=== PATIENT | female | born 1930 | race Caucasian/White ===

== ENCOUNTER → 2017-12-13 | Outpatient (CLI) | payer OTHER, MEDICAID ==
[~2017-12-13] MED LIST: ADVAIR HFA 230M12 GM INH; BENADRYL25 MG PO; CIPRO500 MG PO; CLONIDINE HCL0.2 M2 PO; HYDROCODON-ACE1 EAC7 PO; HYDROCODONE-AP1 EAC6 PO; KLOR-CON 1010 MEQ PO; LIALDA1.2 GM PO; LIDODERM1 EACH TRANSDERM; LOVASTATIN 20 M20 MG PO; LYRICA 50 MG50 MG PO; MUCINEX600 MG PO; NEURONTIN600 MG PO; NORCO 10-325 T1 EACH PO; NORVASC5 MG PO; OMEPRAZOLE40 MG PO; PREDNISONE 10 M10 MG PO; PRINIVIL20 MG PO; RISEDRONATE SO150 MG PO; SYNTHROID100 MC1 PO; TYLENOL325 MG PO; VENTOLIN HFA 1818 GM INH
--- NOTE | 2017-12-21 09:09 | PAINCON ---
[address] [address] PAIN MANAGEMENT CONSULTATION Name: MARVIN DARDEN Room: [facility].#: [id number] Admission: 12/13/17 Attend Phys: Brooks Mariscal MD Discharge: Date of : 32 Report #: [id number] THIS REPORT FOR: //name// CC: Florinda Harrell DATE OF SERVICE: 12/13/2017 CHIEF COMPLAINT: Postherpetic neuralgia, had shingles. FOLLOWUP HISTORY: The patient is an 87-year-old female, who has been referred to the pain clinic for evaluation of right-sided chest wall pain. The patient states that she had shingles about 2 years ago. She has been treated with gabapentin and hydrocodone. Finds that these medications are somewhat helpful. When she takes the gabapentin, she notes that there is some improvement, but by the end of the day, she noticed that her pain starts to become more problematic. Has some burning, shooting pain in the posterior portion of her back and some pain that radiates around to the right breast into the midline area. She has not noticed any vesicles or new lesions. At this juncture, she would like to be evaluated and take note of any additional pain medications/procedures which would be helpful at this juncture. She did not have a thoracic epidural for sympathectomy originally. ALLERGIES: BACTRIM-DS AND AUGMENTIN. PAST MEDICAL HISTORY: Hypertension, asthma, hypercholesterolemia, GERD, dysequilibrium, chronic ulcerative colitis, peripheral postherpetic neuropathy, insomnia, generalized anxiety disorder, osteoporosis, essential hypertension, osteopenia, hypothyroidism, eczema, history of carcinoma basal cell, allergic rhinitis, hyperlipidemia, degenerative joint disease, and rosacea. CURRENT MEDICATIONS: 1. Albuterol 2.5 mg nebulizer q.i.d. 2. Nortriptyline 10 mg 1 p.o. t.i.d. 3. Amlodipine 5 mg. 4. Risedronate 150 mg monthly. 5. Gabapentin 600 mg p.o. t.i.d. 6. Colace 100 mg daily. 7. Hydrocodone 10/325 one p.o. up to 4 times daily. 8. Trazodone 150 mg at bedtime. 9. Aspirin 81 mg. 10. Lisinopril 40 mg. 11. Caltrate 600 mg. 12. Lialda 1.2 g time release. 13. Levothyroxine [address] [place] [address] PAIN MANAGEMENT CONSULTATION Name: MARVIN DARDEN Room: [facility]#: [id number] Admission: 12/13/17 Attend Phys: Brooks Mariscal MD Discharge: Date of : 32 Report #: [id number] 14. Lovastatin 40 mg at bedtime. 15. ProAir 2 puffs daily. 16. Advair Diskus 1 puff b.i.d. 17. Omeprazole one 40 mg capsule daily. PAST SURGICAL HISTORY: Bilateral knee surgery was in 2007 and cataract surgery. SOCIAL HISTORY: She is retired. Denies use of tobacco, denies use of alcoholic beverages. REVIEW OF SYSTEMS: Generally, good health. Some fatigue and weakness, headaches, wears glasses, eye disease, hearing loss, palpitations, shortness of breath with walking, cough, frequent shortness of breath, asthma, wheezing, frequent urination, awakens at night to urinate, thyroid disease, frequent headaches, memory loss, and bruising. PAIN CLINIC ASSESSMENT: 1. The patient does have osteoarthritic changes with bilateral knee replacements. 2. Height 4 feet 9 inches, weight 137 pounds, BMI is 29. 3. Vital Signs: Blood pressure 144/70, heart rate 70, respiratory rate 16, room air saturation 96%, temperature 98.2. 4. Pain intensity 3/10, worse when the intensity of the pain/lancinating pain is present. 5. Fall history: The patient fell about 2 years ago and fractured her right wrist and thumb. 6. Blood thinner. The patient is not on a blood thinner. 7. History of hypertension. The patient is being treated for hypertension. 8. Opioid therapy greater than 6 weeks. The patient has been on opioid therapy greater than 6 weeks. 9. Risk assessment tool. 10. Functional assessment tool 47/70 indicating moderate impact on activities of daily living secondary to the pain. 11. Recreational drugs: The patient denies use of recreational drugs. 12. Tobacco: The patient denies use of tobacco. 13. Alcohol: The patient denies use of alcohol. PHYSICAL EXAMINATION: GENERAL: The patient is a well-developed female. She appears her stated age. She is alert and oriented x 3. HEENT: Normocephalic, atraumatic. Extraocular eye muscles intact. She wears glasses. Hearing is adequate. Mucous membranes are moist. NECK: Without adenopathy. Good range of motion. Upper extremities judged to be 4/5 for muscle strength bilaterally. MUSCULOSKELETAL: Without significant scoliosis or lordosis. Slight kyphosis. ABDOMEN: Protuberant lower extremity muscle strength is judged to be 4+ to -5 [place] [address] PAIN MANAGEMENT CONSULTATION Name: MARVIN DARDEN Room: [facility] Teresa#: [id number] Admission: 12/13/17 Attend Phys: Brooks Mariscal MD Discharge: Date of : 32 Report #: [id number] for the major muscle groups of lower extremity. The patient uses her arms to help push herself from the feet to stand up. Walks with use of a cane in her right hand. Does need some assistance in going from the floor to the examination table. CHEST: The patient has some remnants of lesions from the thoracic shingles outbreak in the T6/T7 is distribution. The patient has some pain and discomfort over her left breast. Has some pain in the posterior portion in the midline area of her back. No lesions are noted. Palpation in this area of the anterior breast is sore and tender. The patient does not wear a bra. IMPRESSION: 1. History of shingles approximately 2 years ago with postherpetic neuralgia involving the right T6/T7 dermatomal distribution. 2. Asthma. 3. Gastroesophageal reflux disease. 4. Dysequilibrium. 5. Chronic ulcerative colitis. 6. Postherpetic neuralgia. 7. Insomnia. 8. Generalized anxiety disorder. 9. Osteoporosis. 10. Hypertension. 11. Osteopenia. 12. Hypothyroidism. 13. Eczema. 14. History of carcinoma, basal cell. 15. Hyperlipidemia. 16. Degenerative joint disease. 17. Rosacea. RECOMMENDATIONS: We discussed treatment options with the patient. At this juncture, we will make some modifications to her medications. She feels that the gabapentin has been helpful. It "wears off." We will try Lyrica 50 mg 1 p.o. b.i.d. and note its efficacy. The patient has been given a script for this medication. She feels that the hydrocodone 3-4 tablets p.o. 10 mg daily is efficacious. We will give her a script for 3 tablets 1 p.o. daily. She will follow up in about 2 weeks and note its efficacy. We would like to thank you for letting us participate in her care. The patient will also try Lidoderm patches to apply to the affected area q.12 hours. She will call us if she has any problems [place] [address] PAIN MANAGEMENT CONSULTATION Name: MARVIN DARDEN Room: [facility]#: [id number] Admission: 12/13/17 Attend Phys: Brooks Mariscal MD Discharge: Date of : 32 Report #: [id number] We would like to thank you for letting us participate in her care. We hope she continues to improve. <ELECTRONICALLY SIGNED> By: Brooks Mariscal MD 12/21/17 0909 1307 1931N. Tucker Mariscal MD /ABDIRIZAK
== END ==
LOC: M.PC 12-04 10:40
DX: B02.29 Other postherpetic nervous system involvement (principal); B02.9 Zoster without complications; J45.909 Unspecified asthma, uncomplicated; K21.9 Gastro-esophageal reflux disease without esophagitis; R42 Dizziness and giddiness; K51.90 Ulcerative colitis, unspecified, without complications; F41.9 Anxiety disorder, unspecified; M81.0 Age-related osteoporosis without current pathological fracture; I10 Essential (primary) hypertension; E03.9 Hypothyroidism, unspecified; L30.9 Dermatitis, unspecified; E78.5 Hyperlipidemia, unspecified; M19.90 Unspecified osteoarthritis, unspecified site; L71.9 Rosacea, unspecified; M85.80 Other specified disorders of bone density and structure, unspecified site; G47.00 Insomnia, unspecified; Z85.828 Personal history of other malignant neoplasm of skin; Z88.2 Allergy status to sulfonamides; Z88.1 Allergy status to other antibiotic agents

== ENCOUNTER → 2017-12-27 | Outpatient (CLI) | payer OTHER, MEDICAID ==
--- NOTE | 2018-01-23 13:42 | PAINCON ---
[address] [address] PAIN MANAGEMENT CONSULTATION Name: MARVIN DARDEN Room: [facility].#: [id number] Admission: 12/27/17 Attend Phys: Brooks Mariscal MD Discharge: Date of : 32 Report #: [id number] THIS REPORT FOR: //name// CC: Florinda Harrell DATE OF SERVICE: 12/27/2017 CHIEF COMPLAINT: Still having pain from the shingles. FOLLOWUP HISTORY: The patient is an 87-year-old female who has been referred to the Pain Clinic because of postherpetic neuralgia. The patient states that she has had this for about 2 years. She has been treated with gabapentin and hydrocodone. Her medications were modified at the last visit. She is now taking Lyrica. She took 150 mg daily since we saw her last. She feels that her pain continues to be problematic. She still has burning pain. She still has shooting pain in the upper portion of her back and some pain radiating into the midline in the breast area. She still feels that her pain is still problematic and rates it as a 6/10. She had no problems with the Lyrica medication. She feels that Lidoderm patches are working reasonably well. She would like to continue with her medications. CURRENT MEDICATIONS: 1. Albuterol 2.5 mg q.i.d. 2. Nortriptyline 10 mg t.i.d. 3. Amlodipine 5 mg. 4. Risedronate 150 mg monthly. 5. Gabapentin 600 mg t.i.d. - has been changed to Lyrica 150 mg b.i.d. 6. Colace. 7. Hydrocodone 10/325 q.i.d. 8. Trazodone 150 mg at bedtime. 9. Aspirin 81 mg. 10. Lisinopril 40 mg. 11. Caltrate 600 mg. 12. Lialda 1.2 g time release. 13. Levothyroxine 100 mcg. 14. Lovastatin 40 mg at bedtime. 15. ProAir 2 puffs daily. 16. Advair Diskus 1 puff b.i.d. 17. Omeprazole one 40 mg tablet daily. PAIN CLINIC ASSESSMENT: 1. The patient does have osteoarthritic changes involving her knees bilaterally with status post replacements. 2. Height 4 feet 9 inches, weight 137 pounds, BMI is 29.7. [place] [id number] PAIN MANAGEMENT CONSULTATION Name: MARVIN DARDEN Room: [facility]#: [id number] Admission: 12/27/17 Attend Phys: Brooks Mariscal MD Discharge: Date of : 32 Report #: [id number] 3. Vital Signs: Blood pressure 128/67, heart rate is 81, respiratory rate is 16, room air saturation 95%, temperature 98.5. 4. Pain clinic intensity 6/10 with lancinating pain to the chest wall. 5. Fall history: The patient has not fallen in the last three months. 6. Blood thinner. The patient is not on a blood thinner. 7. History of hypertension. The patient is being treated for hypertension. 8. Opioid therapy greater than 6 weeks. The patient has been on opioid therapy greater than 6 weeks. 9. Risk assessment tool. 10. Functional assessment tool 47/70 indicating moderate impact on activities of daily living. 11. Recreational drug use: The patient denies use of recreational drugs. 12. Tobacco: The patient denies use of tobacco. 13. Alcohol: The patient denies use of alcoholic beverages. PHYSICAL EXAMINATION: GENERAL: The patient is a well-developed female. She appears her stated age. She is alert and oriented x 3. HEENT: Normocephalic, atraumatic. Extraocular eye muscles intact. She is wearing glasses. Hearing is adequate. Mucous membranes are moist. Sclerae nonicteric. NECK: Without adenopathy. Good range of motion. Upper extremities judged to be 4/5 for muscle strength bilaterally and symmetrical. MUSCULOSKELETAL: Without significant scoliosis or lordosis. The patient is slightly kyphotic. ABDOMEN: Protuberant lower extremity muscle strength judged to be 5/5 for the major muscle groups. The patient uses her arms to push and lift herself from a seated position in the chair to a standing position. Walks with her cane in her right hand. Does need some assistance when going from the floor to the examination table. CHEST: Clear to auscultation. Some remnants of thoracic shingle outbreak at the T6/T7 distribution is noted. She has some discomfort over her left breast area. She has some pain in the posterior portion of her back secondary to the shingles. No lesions are noted. Soreness and tenderness in the anterior portion of the breast to palpation. The patient does not wear a bra. IMPRESSION: 1. History of shingles 2 years status post now postherpetic neuralgia involving the T6/T7 dermatomal distribution. 2. Asthma. 3. Gastroesophageal reflux. 4. Dysequilibrium. 5. Chronic ulcerative colitis. 6. Peripheral postherpetic neuralgia. 7. Insomnia. 8. Generalized anxiety disorder. [address] [place] [address] PAIN MANAGEMENT CONSULTATION Name: MARVIN DARDEN Room: [facility]#: [id number] Admission: 12/27/17 Attend Phys: Brooks Mariscal MD Discharge: Date of : 32 Report #: [id number] 9. Osteoporosis. 10. Hypertension. 11. Osteopenia. 12. Hypothyroidism. 13. Eczema. 14. History of carcinoma - basal cell. 15. Hyperlipidemia. 16. 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 17. Rosacea. RECOMMENDATIONS: We discussed treatment options with the patient. At this juncture, we will increase her Lyrica from 150 mg daily to 200 mg daily. We will also continue with hydrocodone 5, one p.o. t.i.d., total of 90. We may continue switching the patient from nortriptyline to Elavil. As you recall, nortriptyline is a metabolite of Elavil. Sometimes patients find that Elavil can be more beneficial in decreasing pain and discomfort. She will follow up as needed. We would like to thank you for letting us participate in her care. We hope she continues to improve. <ELECTRONICALLY SIGNED> By: Brooks Mariscal MD 01/23/18 1342 0916 0052N. Tucker Mariscal MD /nt
== END ==
LOC: M.PC 04:04
DX: B02.29 Other postherpetic nervous system involvement (principal); K21.9 Gastro-esophageal reflux disease without esophagitis; K51.90 Ulcerative colitis, unspecified, without complications; G47.00 Insomnia, unspecified; J45.909 Unspecified asthma, uncomplicated; F41.1 Generalized anxiety disorder; R42 Dizziness and giddiness

== ENCOUNTER 2018-01-14 15:32 | Observation (INO) | payer OTHER, MEDICAID ==
[~2018-01-14] VITALS: Ht 142.2 cm; Wt 63.5 kg
[~2018-01-14 15:32] MED LIST changes: -BENADRYL25 MG PO; -CLONIDINE HCL0.2 M2 PO; -HYDROCODONE-AP1 EAC6 PO; -KLOR-CON 1010 MEQ PO; -TYLENOL325 MG PO
[2018-01-14 15:39] VITALS: BP 158/89
[2018-01-14] MEDS ORDERED: TYLENOL325 MG PO (15:46)
[2018-01-14] MEDS ORDERED: CLONIDINE HCL0.2 M2 PO (15:47)
[2018-01-14] MEDS ORDERED: KLOR-CON 1010 MEQ PO (15:47)
[2018-01-14] MEDS ORDERED: BENADRYL25 MG PO (15:47)
[2018-01-14 16:11] LABS: URINE BILIRUBIN NEGATIVE (Negative); URINE BLOOD 1+ (Negative); URINE CLARITY CLEAR; URINE COLOR YELLOW; URINE GLUCOSE-RANDOM NEGATIVE (Negative); URINE KETONES NEGATIVE (Negative); URINE LEUKOCYTES-REFLEX NEGATIVE (Negative); URINE NITRITE-REFLEX NEGATIVE (Negative); URINE PROTEIN NEGATIVE (Negative); URINE UROBILINOGEN 0.2 E.U./dl (0.2-1.0)
[2018-01-14 16:22] LABS: BACTERIA-REFLEX None Seen /HPF (None Seen); CASTS None Seen /LPF (None Seen); CRYSTALS None Seen /LPF (None Seen); SQUAMOUS 0-3 Few /LPF (0-3); URINE RBC 0-2 Rare /HPF (0-2); URINE WBC-REFLEX None Seen /HPF (0-5)
[2018-01-14 16:39] LABS: ABSOLUTE BASOPHILS 0.1 thou/uL (0.0-0.2); ABSOLUTE EOSINOPHILS 0.1 thou/uL (0.0-0.7); ABSOLUTE LYMPHOCYTES 2.8 thou/uL (0.8-5.3); ABSOLUTE MONOCYTES 0.5 thou/uL (0.0-1.2); ABSOLUTE NEUTROPHILS 3.3 thou/uL (1.6-8.1); BASOPHILS 0.9 %; EOSINOPHILS 1.2 %; HEMATOCRIT 36.6 % (37.0-47.0); HEMOGLOBIN 12.3 gm/dL (12.0-15.0); LYMPHOCYTES 41.3 %; MCH 31.5 pg (26.0-34.0); MCHC 33.7 g/dL (28.0-37.0); MCV 93.5 fL (80.0-100.0); MONOCYTES 7.3 %; MPV 7.9 fl. (7.2-11.1); NUCLEATED RBCS 0 /100WBC; PLATELET COUNT* 236 thou/uL (150-400); POLYS 49.3 %; RBC 3.92 mil/uL (4.20-5.00); RDW-CV 14.5 % (10.5-14.5); WBC 6.7 thou/uL (4.0-11.0)
[2018-01-14 16:49] LABS: ANION GAP 8 mmol/L (7-16); BUN 15 mg/dL (7-18); CALCIUM 8.6 mg/dL (8.5-10.1); CHLORIDE 100 mmol/L (98-107); CO2 27 mmol/L (21-32); CREATININE 0.6 mg/dL (0.6-1.3); GLUCOSE 110 mg/dL (70-99); POTASSIUM 3.7 mmol/L (3.5-5.1); SODIUM 135 mmol/L (136-145)
[2018-01-14 16:59] LABS: ALBUMIN 3.5 g/dL (3.4-5.0); ALKALINE PHOSPHATASE 60 U/L (46-116); LIPASE 196 U/L (73-393); NT-PRO BRAIN NAT PEPTIDE 139 pg/mL (<300); SGOT 15 U/L (15-37); SGPT 19 U/L (30-65); TOTAL BILIRUBIN 0.3 mg/dL (<0.1-1.0); TOTAL PROTEIN 7.6 g/dL (6.4-8.2); TROPONIN-I LEVEL <0.06 ng/mL (<0.06)
--- NOTE | 2018-01-14 18:37 | NUR ---
DINNER TRAY CAME AND PT WAS HAVING US CAROTIDS. TAKING TRAY TO UNIT WITH PATIENT
[2018-01-14 19:00] VITALS: BP 140/59
[2018-01-14 20:00] VITALS: BP 133/48
[2018-01-14 23:43] VITALS: BP 148/63
[2018-01-15] VITALS (7 sets, daily range): BP systolic 96–147; BP diastolic 43–70
[2018-01-15 01:06] LABS: CALCIUM 8.7 mg/dL (8.5-10.1); CREATININE 0.6 mg/dL (0.6-1.3); MAGNESIUM 2.2 mg/dL (1.8-2.4); POTASSIUM 4.1 mmol/L (3.5-5.1)
--- NOTE | 2018-01-15 12:27 | NUR ---
MET WITH PT, SHE LIVES ALONE IN [facility]. NO SERVICES THERE. PT STATES SHE IS INDEPENDENT AND ACTIVE, USES CANE OR WALKER. [facility]TR PROVIDES TRANSPORTATION TO APPTS AND STORE. PT IS ABLE TO CLEAN/COOK. SHE HAS HAD HH IN PAST. DENIES ANY DC NEEDS. WILL FOLLOW
--- NOTE | 2018-01-15 13:34 | 2DMMODE ---
[place] [address] 2 D/M-MODE ECHOCARDIOGRAM Name: MARVIN DARDEN Room: [address] Afshan Moore#: [id number] Admission: 01/14/18 Attend Phys: Raghavendra Almonte, Discharge: Date of : 32 Date of Service: 01/15/18 1334 Report #: [id number] THIS REPORT FOR: //name// APPROVED REPORT Study performed: 01/15/2018 10:49:45 EXAM: Comprehensive 2D, Doppler, and color-flow Echocardiogram Patient Location: In-Patient Room #: [facility] Status: routine BSA: 1.58 HR: 63 bpm BP: 138/70 mmHg Rhythm: NSR Other Information Study Quality: Good Indications Hypertension/HDD 2D Dimensions LVEF(%): 71.02 (>50%) IVSd: 8.88 (7-11mm) LVOT Diam: 18.01 (18-24mm) LVDd: 40.62 mm PWd: 8.60 (7-11mm) Ascending Ao: 28.50 (22-36mm) LVDs: 24.41 (25-40mm) Aortic Root: 26.26 mm Pettit's LVEF: 71.02 % Volumes Left Atrial Volume (Systole) LA ESV Index: 28.10 mL/m2 Aortic Valve AoV Peak El.: 1.89 m/s AO Peak Gr.: 14.26 mmHg LVOT Max P.64 mmHg AO Mean Gr.: 8.11 mmHg LVOT Mean P.25 mmHg LVOT Max V: 1.08 m/s AO V2 VTI: 39.06 cm LVOT Mean V: 0.69 m/s OMEGA (VTI): 1.59 cm2 LVOT V1 VTI: 24.37 cm Mitral Valve E/A Ratio: 0.77 [place] [address] 2 D/M-MODE ECHOCARDIOGRAM Name: MARVIN DARDEN Room: [address] Teresa#: [id number] Admission: 01/14/18 Attend Phys: Raghavendra Almonte, Discharge: Date of : 32 Date of Service: 01/15/18 1334 Report #: [id number] MV Decel. Time: 327.35 ms MV E Max El.: 0.79 m/s MV PHT: 94.93 ms MVA (PHT): 2.32 cm2 TDI E/Lateral E': 11.29 E/Medial E': 9.88 Medial E' El.: 0.08 m/s Lateral E' El.: 0.07 m/s Pulmonary Valve PV Peak El.: 0.98 m/s PV Peak Gr.: 3.87 mmHg Tricuspid Valve TR Peak Gr.: 19.29 mmHg RVSP: 24.00 mmHg Left Ventricle The left ventricle is normal size. There is normal LV segmental wall motion. There is normal left ventricular wall thickness. Left ventricular systolic function is normal. The left ventricular ejection fraction is within the normal range. LVEF is 60-65%. Grade I - abnormal relaxation pattern. Right Ventricle The right ventricle is normal size. The right ventricular systolic function is normal. Atria The left atrium size is normal. The right atrium size is normal. Aortic Valve The aortic valve is normal in structure. No aortic regurgitation is present. There is no aortic valvular stenosis. Mitral Valve The mitral valve is normal in structure. There is no mitral valve regurgitation noted. No evidence of mitral valve stenosis. Tricuspid Valve The tricuspid valve is normal in structure. Mild tricuspid regurgitation. The RVSP is ____24___ mmHg. Pulmonic Valve The pulmonary valve is normal in structure. There is no pulmonic [place] [address] 2 D/M-MODE ECHOCARDIOGRAM Name: MARVIN DARDEN Room: [address] M.RVignesh#: [id number] Admission: 01/14/18 Attend Phys: Raghavendra Almonte, Discharge: Date of : 32 Date of Service: 01/15/18 1334 Report #: [id number] Great Vessels The aortic root is normal in size. IVC is normal in size and collapses with >50% inspiration Pericardium There is no pericardial effusion. <Conclusion> The left ventricle is normal size. There is normal left ventricular wall thickness. Left ventricular systolic function is normal. The left ventricular ejection fraction is within the normal range. LVEF is 60-65%. Grade I - abnormal relaxation pattern. The right ventricle is normal size. The left atrium size is normal. The aortic valve is normal in structure. The mitral valve is normal in structure. The tricuspid valve is normal in structure. Mild tricuspid regurgitation. The RVSP is ____24___ mmHg. IVC is normal in size and collapses with >50% inspiration There is no pericardial effusion. There is normal LV segmental wall motion. <ELECTRONICALLY SIGNED> By: Clarence Figueroa MD, [facility] 01/15/18 1334 1334 1334 Clarence Figueroa MD, FACC /INF
--- NOTE | 2018-01-15 13:56 | EKG ---
[place] [address] ELECTROCARDIOGRAM REPORT Name: AMRVIN DARDEN Room: [address]R.#: [id number] Admission: 01/14/18 Attend Phys: Raghavendra Almonte MD Discharge: Date of : 32 Report #: [id number] THIS REPORT FOR: //name// [facility] ED Test Date: 2018-01-14 Test Time: 15:45:50 Pat Name: MARVIN DARDEN Department: Room: Gender: F Job Placement Specialist: [place] : 1930 Requested By: Rufus Sexton Order Number: [id number] MD: Clarence Figueroa Measurements Intervals [place] Rate: 65 P: 30 NV: 181 QRS: -42 QRSD: 106 T: 24 QT: 440 QTc: 458 Interpretive Statements Sinus rhythm Probable left atrial enlargement Left anterior fascicular block Left ventricular hypertrophy No previous ECG available for comparison Electronically Signed On 01-15-2018 13:56:15 CDT by Clarence Figueroa [email or web address] <ELECTRONICALLY SIGNED> By: Clarence Figueroa MD, [facility] 01/15/18 1356 1545 1545 Clarence Figueroa MD, FACC /EPI
--- NOTE | 2018-01-15 14:52 | NUR ---
ASSUMED CARE OF PATIENT AFTER REPORT THIS MORNING. PATIENT AWAKE, ALERT, AND ORIENTED APPROPRIATELY. PHYSICAL ASSESSMENT COMPLETED AND CHARTED. COMPLAINED OF PAIN. GIVEN SCHEDULED MEDICATIONS, SEE EMAR FOR DOCUMENTATION. VITAL SIGNS STABLE. OXYGEN SATURATION WITHIN NORMAL LIMITS ON ROOM AIR. PATIENT TRANSFERS AND AMBULATES WITH ASSISTANCE FROM STAFF. USES CALL LIGHT APPROPRIATELY. HAS AMBULATED HALLWAYS TODAY WITH PLATING FOREMAN ASSIST. RECEIVED ORDERS TO DISCHARGE PATIENT. ECHO RESULTS NORMAL. IV DISCONTINUED AND WORKERS COMPENSATION LEGAL SECRETARY RETURNED TO NURSE'S STATION. NURSING WILL CONTINUE TO MONITOR UNTIL DISCHARGE.
--- NOTE | 2018-01-15 15:16 | NUR ---
DISCHARGE PAPERWORK COMPLETED AND DISCUSSED WITH PATIENT. GIVEN COPY TO TAKE HOME. PATIENT DISCHARGED AT THIS TIME.
[2018-01-24] MEDS ORDERED: HYDROCODON-ACE1 EAC7 PO ×3 (08:39→10:27)
[2018-01-24] MEDS ORDERED: HYDROCODONE-AP1 EAC6 PO (10:27)
[2018-01-24] MEDS ORDERED: LYRICA 50 MG50 MG PO (10:27)
== END 2018-01-15 15:16 | disposition home or self-care (01) ==
LOC: M.ERS 15:32 → M.2W 17:29 → M.TBA-ER 17:29 → M.2W 17:29
PROVIDERS: Emergency Medicine; ADMIT Internal Medicine
DX: R55 Syncope and collapse (principal); K21.9 Gastro-esophageal reflux disease without esophagitis; I10 Essential (primary) hypertension; J45.909 Unspecified asthma, uncomplicated; K51.90 Ulcerative colitis, unspecified, without complications; J98.4 Other disorders of lung; E87.6 Hypokalemia; E03.9 Hypothyroidism, unspecified; Z79.899 Other long term (current) drug therapy; T42.6X5A Adverse effect of other antiepileptic and sedative-hypnotic drugs, initial encounter; Y92.89 Other specified places as the place of occurrence of the external cause

== ENCOUNTER → 2018-01-24 | Outpatient (CLI) | payer OTHER, MEDICAID ==
[~2018-01-24] MED LIST changes: +BENADRYL25 MG PO; +CLONIDINE HCL0.2 M2 PO; +HYDROCODONE-AP1 EAC6 PO; +KLOR-CON 1010 MEQ PO; +TYLENOL325 MG PO
--- NOTE | 2018-02-07 15:18 | PAINCON ---
[address] [address] PAIN MANAGEMENT CONSULTATION Name: MARVIN DARDEN [id number] Admission: 01/24/18 Attend Phys: Brooks Mariscal MD Discharge: Date of : 32 Report #: [id number] THIS REPORT FOR: //name// CC: Florinda Mariscal DATE OF SERVICE: 01/24/2018 FOLLOWUP COMPLAINT: "Here to get a renewal of my medication." FOLLOWUP HISTORY: The patient is an 87-year-old female, who has been seen in the pain clinic. As you recall, she suffered from shingles. The postherpetic pain continued to be problematic. She was given a sample pack for Lyrica. She felt that this medication was helpful. [place] that it was more helpful than the gabapentin, which she had been taking. She was provided [place] 5 mg 1 p.o. t.i.d. and found that medication was helpful. She had been taking it 4 times a day. Overall, [place] and Lyrica were helpful with the postherpetic neuralgia. Rates her pain as a 3/10 at this juncture. She has returned today for renewal of her medications. ALLERGIES: No known drug allergies. CURRENT MEDICATIONS: Albuterol 2.5 mg q.i.d., nortriptyline 10 mg t.i.d., amlodipine 5 mg, risedronate 150 mg monthly, gabapentin has been used, the patient is taking 150 mg b.i.d., Colace, hydrocodone 5/325 one p.o. q.i.d., trazodone 150 mg at bedtime, aspirin 81 mg, lisinopril 40 mg, Caltrate 600 mg, Lialda 12.5 grams time release, levothyroxine 100 mcg, lovastatin 40 mg at bedtime, ProAir 2 puffs daily, Advair Diskus 1 puff b.i.d., and omeprazole 40 mg daily. PAIN CLINIC ASSESSMENT: 1. The patient does have osteoarthritic changes involving her knees bilaterally and is status post replacement of the knees. 2. Height 4 feet 9 inches. Weight 139, BMI 30. 3. VITAL SIGNS: Blood pressure 151/73, heart rate 86, respiratory rate 10, room air saturation 97%, temperature 98.7, pain score intensity 3/10. 4. Fall history: The patient has not fallen in the last 3 months. 5. Blood thinner. The patient is not on a blood thinning medication. 6. History of hypertension. The patient is being treated for hypertension. 7. Opioid therapy greater than 6 weeks. The patient has been on opioid therapy greater than 6 weeks using hydrocodone. 8. Risk assessment tool. 9. Functional assessment tool, 47/70 indicating moderate impact on activities of daily living secondary to the pain. 10. Recreational drug use. The patient denies use of recreational drug use. 11. Tobacco: The [place] [address] PAIN MANAGEMENT CONSULTATION Name: MARVIN DARDEN Room: [facility] Teresa#: [id number] Admission: 01/24/18 Attend Phys: Brooks Mariscal MD Discharge: Date of : 32 Report #: [id number] 12. Alcohol: The patient denies use of alcoholic beverages. PHYSICAL EXAMINATION: GENERAL: The patient is a well-developed, small female. She appears her stated age. She is alert and oriented x 3. HEENT: Normocephalic, atraumatic. Extraocular eye muscles intact. The patient is wearing glasses. Her hearing is adequate. Mucous membranes are moist. Sclerae nonicteric. NECK: Without adenopathy. Good range of motion. Upper extremity is judged to be 4/5 for the major muscle groups with symmetry. MUSCULOSKELETAL: Without significant scoliosis or lordosis. The patient is slightly kyphotic. ABDOMEN: Slightly protuberant. EXTREMITIES: Lower extremity muscle strength is judged to be 4+/5 for the major muscle groups. The patient uses her arms to push herself from sitting to a standing position. She walks with a cane. CHEST: Clear. The patient with remnants of shingles outbreak in the T6/T7 distribution. No lesions are noted. The patient has some soreness and tenderness in the anterior portion of the breast in the area of the shingles outbreak. IMPRESSION: 1. History of shingles, 2 years status post postherpetic neuralgia involving T6/T7 dermatomal distribution. 2. Asthma. 3. Gastroesophageal reflux. 4. Dysequilibrium. 5. Chronic ulcerative colitis. 6. Postherpetic neuralgia. 7. Insomnia. 8. Generalized anxiety disorder. 9. Osteoporosis. 10. Hypertension. 11. Osteopenia. 12. Hyperthyroidism. 13. Eczema. 14. History of cancer in situ/basal cell. 15. Hyperlipidemia. 16. 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 17. Rosacea. RECOMMENDATIONS: We discussed treatment options with the patient. She felt that the gabapentin was helpful. At this juncture, we will rewrite for the gabapentin and increase it as she is able to tolerate it. She requests script and one for 50 mg 1 p.o. t.i.d. has been written. Also, the patient would like to have a renewal of hydrocodone. A script [place] [address] PAIN MANAGEMENT CONSULTATION Name: ADELSOMARVIN Chantale [facility] [id number] Admission: 01/24/18 Attend Phys: Brooks Mariscal MD Discharge: Date of : 32 Report #: [id number] q.i.d. has been written. The patient feels that medication is helpful. A 3-month prescription for the hydrocodone has been written. The patient states that she has quite a difficult time in getting to the pain clinic. She will call us if she has any problems with her medications. Hopefully, she finds that the Lyrica continues to be helpful. Overall, she feels that the medications have been helpful in decreasing her postherpetic neuralgia and feels that Lyrica has been more efficacious than gabapentin. <ELECTRONICALLY SIGNED> By: Brooks Mariscal MD 02/07/18 1518 1618 1949N. Tucker Mariscal MD /nt
== END ==
LOC: M.PC 01:11
DX: M81.0 Age-related osteoporosis without current pathological fracture (principal); M85.80 Other specified disorders of bone density and structure, unspecified site; M17.0 Bilateral primary osteoarthritis of knee; E03.9 Hypothyroidism, unspecified; E78.5 Hyperlipidemia, unspecified; K21.9 Gastro-esophageal reflux disease without esophagitis; K51.90 Ulcerative colitis, unspecified, without complications; J45.909 Unspecified asthma, uncomplicated; B02.29 Other postherpetic nervous system involvement; G47.00 Insomnia, unspecified; F41.1 Generalized anxiety disorder; L71.9 Rosacea, unspecified; R42 Dizziness and giddiness; Z79.899 Other long term (current) drug therapy

== ENCOUNTER 2018-07-25 06:06 | Observation (INO) | payer OTHER, MEDICAID ==
[~2018-07-25] VITALS: Ht 147.3 cm; Wt 64.9 kg
[2018-07-25] VITALS (8 sets, daily range): BP systolic 95–169; BP diastolic 42–79
--- NOTE | 2018-07-25 00:08 | NUR ---
ASSESSMENT COMPLETE. SEE CHARTING FOR DETAILS. TRACING SR WITH 1ST DEGREE BLOCK ON MONITOR. ORTHOSTATICS NEGATIVE. PT COMPLAINS OF PAIN IN RIGHT CHEST TO UNDER RIGHT ARM TO BACK THAT IS CHRONIC. PRN HYDROCODONE GIVEN WITH SOME RELIEF. PT DENIES DIZZINESS, N/V/D. CLWR/
--- NOTE | 2018-07-25 06:46 | NUR ---
PATIENT AMBULATED TO BATHROOM WITH ASSISTANCE AND PROVIDED WITH A URINE SPECIMAN.
[2018-07-25 06:52] LABS: URINE BILIRUBIN NEGATIVE (Negative); URINE BLOOD NEGATIVE (Negative); URINE CLARITY CLEAR; URINE COLOR YELLOW; URINE GLUCOSE-RANDOM NEGATIVE (Negative); URINE KETONES NEGATIVE (Negative); URINE LEUKOCYTES-REFLEX TRACE (Negative); URINE NITRITE-REFLEX NEGATIVE (Negative); URINE PROTEIN NEGATIVE (Negative); URINE UROBILINOGEN 0.2 E.U./dl (0.2-1.0)
[2018-07-25 07:01] LABS: ABSOLUTE BASOPHILS 0.1 thou/uL (0.0-0.2); ABSOLUTE EOSINOPHILS 0.2 thou/uL (0.0-0.7); ABSOLUTE MONOCYTES 0.6 thou/uL (0.0-1.2); ABSOLUTE NEUTROPHILS 4.2 thou/uL (1.6-8.1); EOSINOPHILS 3.1 %; HEMOGLOBIN 12.4 gm/dL (12.0-15.0); LYMPHOCYTES 27.7 %; MCH 32.3 pg (26.0-34.0); MCHC 33.5 g/dL (28.0-37.0); MCV 96.4 fL (80.0-100.0); MONOCYTES 8.7 %; MPV 7.6 fl. (7.2-11.1); NUCLEATED RBCS 0 /100WBC; PLATELET COUNT* 245 thou/uL (150-400); POLYS 59.5 %; RBC 3.84 mil/uL (4.20-5.00); RDW-CV 13.8 % (10.5-14.5); WBC 7.1 thou/uL (4.0-11.0)
[2018-07-25 07:08] LABS: BACTERIA-REFLEX 1-9 Few /HPF (None Seen); SQUAMOUS 4-10 Moderate /LPF (0-3); URINE RBC 0-2 Rare /HPF (0-2); URINE WBC-REFLEX 0-5 Rare /HPF (0-5)
[2018-07-25 07:09] LABS: CASTS None Seen /LPF (None Seen); CRYSTALS None Seen /LPF (None Seen); MUCUS 0-3 Light strn/LPF (None Seen)
[2018-07-25 07:11] LABS: ANION GAP 10 mmol/L (7-16); BUN 17 mg/dL (7-18); CALCIUM 9.1 mg/dL (8.5-10.1); CHLORIDE 104 mmol/L (98-107); CO2 26 mmol/L (21-32); CREATININE 0.7 mg/dL (0.6-1.3); GLUCOSE 91 mg/dL (70-99); POTASSIUM 3.5 mmol/L (3.5-5.1); SODIUM 140 mmol/L (136-145)
[2018-07-25 07:14] LABS: APTT 26.6 Seconds (25.0-31.3); PROTIME 10.2 Seconds (9.20-11.50)
[2018-07-25 07:26] LABS: ALBUMIN 3.4 g/dL (3.4-5.0); ALKALINE PHOSPHATASE 67 U/L (46-116); NT-PRO BRAIN NAT PEPTIDE 113 pg/mL (<300); SGOT 15 U/L (15-37); SGPT 21 U/L (30-65); TOTAL BILIRUBIN 0.4 mg/dL (<0.1-1.0); TOTAL PROTEIN 7.7 g/dL (6.4-8.2); TROPONIN-I LEVEL <0.06 ng/mL (<0.06)
--- NOTE | 2018-07-25 08:48 | NUR ---
CATE NOTIFIED UPON PT RETURN FROM CT. PT CONNECTED TO MONITOR AND O2
--- NOTE | 2018-07-25 10:50 | NUR ---
PT ADMITTED TO UNIT AROUND 0930 PT STATES HAS PAIN HEADACHE PT DENIES SOA ON RA, PT IS UP WITH ASSIST WITH WALKER PT IS A FALL RISK BED ALARM IS ON, PT IS SR ON THE MONITOR, PT IS PLEASANT AND COOPERATIVE C/O DIZZINESS, WILL CONTINUE TO MONITOR
--- NOTE | 2018-07-25 15:44 | EKG ---
[place] [address] ELECTROCARDIOGRAM REPORT Name: MARVIN DARDEN Room: [address] ADM IN .R.#: [id number] Admission: 07/25/18 Attend Phys: Raghavendra Almonte MD Discharge: Date of : 32 Report #: [id number] THIS REPORT FOR: //name// [facility] ED Test Date: 2018-07-25 Test Time: 06:48:38 Pat Name: MARVIN DARDEN Department: Room: [facility] Gender: F Integrity Engineer: : 1930 Requested By: Joaquín Escalona Order Number: [id number] MD: Adan Vela Measurements Intervals [place] Rate: 70 P: 41 OR: 184 QRS: -48 QRSD: 138 T: 21 QT: 453 QTc: 489 Interpretive Statements Sinus rhythm RBBB and LAFB Left ventricular hypertrophy Compared to ECG 01/14/2018 15:45:50 Right bundle-branch block now present Electronically Signed On 07-25-2018 15:44:15 SHELTER DIRECTOR by Adan Vela [email or web address] <ELECTRONICALLY SIGNED> By: Adan Vela MD, [facility] 07/25/18 1544 0648 0648 Adan Vela MD, [facility] /EPI
[2018-07-26] VITALS (7 sets, daily range): BP systolic 96–135; BP diastolic 38–52
[2018-07-26 04:57] LABS: HEMATOCRIT 29.5 % (37.0-47.0); MCHC 34.2 g/dL (28.0-37.0); MCV 96.7 fL (80.0-100.0); MPV 7.9 fl. (7.2-11.1); RBC 3.05 mil/uL (4.20-5.00); RDW-CV 13.9 % (10.5-14.5); WBC 6.6 thou/uL (4.0-11.0)
[2018-07-26 05:11] LABS: HEMOGLOBIN 10.1 gm/dL (12.0-15.0)
[2018-07-26 05:14] LABS: CALCIUM 7.7 mg/dL (8.5-10.1); CREATININE 0.8 mg/dL (0.6-1.3); POTASSIUM 3.5 mmol/L (3.5-5.1)
--- NOTE | 2018-07-26 07:30 | NUR ---
ASSUMED CARE OF PT ASSESSED AND DOCUMENTED. PT IS ON CARDIAC MONITER TRACING SR HR 60. PT IS A&O WITH NO C/O PAIN. ORTHOSTATIC BPS TAKEN. PT IS ON ROOM AIR AND IS AFEBRILE. BED IS IN LOW POSITION CALL LIGHT IS IN REACH. WM.
--- NOTE | 2018-07-26 09:37 | NUR ---
DR MALAGON IN PTS ROOM WHEN GIVING MEDS. HLD CLONIDINE R/T BP.
[2018-07-26] MEDS ORDERED: CATAPRES0.1 MG PO (09:40)
--- NOTE | 2018-07-26 13:51 | NUR ---
Pt is A&O. Resides at [facility]. Pt has a KELLY inhome caregiver that comes in once/week to clean. Independent. Pt is discharging to home today, Pt requesting HH. CM faxed referral to [facility]. Dtr to chicken picker and transport home.
--- NOTE | 2018-07-26 14:35 | NUR ---
PT D/C'D TO HOME. EDUCATION GIVEN RE FOLLOW-UPS, MEDICATIONS, AND DR ORDERS. SCRIPT GIVEN. D/C CARDIAC MONITER. PT HAD ALREADY D/C'D IV. ALL BELONGINGS PACKED UP AND LEFT WITH PT ACCOMPANIED BY STAFF AND PTS DAUGHTER.
== END 2018-07-26 14:45 | disposition home or self-care (01) ==
LOC: M.ERS 06:06 → M.2W 09:04 → M.TBA-ER 09:04 → M.2W 09:04
PROVIDERS: Emergency Medicine Emergency Medical Services; ADMIT Internal Medicine
DX: K52.9 Noninfective gastroenteritis and colitis, unspecified (principal); R55 Syncope and collapse; E86.9 Volume depletion, unspecified; K21.9 Gastro-esophageal reflux disease without esophagitis; J45.909 Unspecified asthma, uncomplicated; I10 Essential (primary) hypertension; J98.11 Atelectasis; E78.00 Pure hypercholesterolemia, unspecified; K29.70 Gastritis, unspecified, without bleeding; E03.9 Hypothyroidism, unspecified; B02.29 Other postherpetic nervous system involvement; Z98.890 Other specified postprocedural states; Z79.899 Other long term (current) drug therapy; Z72.89 Other problems related to lifestyle; Z87.891 Personal history of nicotine dependence

== ENCOUNTER 2018-08-16 09:44 | Emergency (ER) | payer OTHER, MEDICAID ==
[~2018-08-16] VITALS: Ht 149.9 cm; Wt 68.0 kg
[~2018-08-16 09:44] MED LIST changes: +CATAPRES0.1 MG PO
[2018-08-16] MEDS ORDERED: KLOR-CON 1010 MEQ PO (09:51)
[2018-08-16 10:21] LABS: ABSOLUTE EOSINOPHILS 0.1 thou/uL (0.0-0.7); ABSOLUTE LYMPHOCYTES 1.4 thou/uL (0.8-5.3); ABSOLUTE MONOCYTES 0.4 thou/uL (0.0-1.2); ABSOLUTE NEUTROPHILS 4.5 thou/uL (1.6-8.1); BASOPHILS 0.6 %; EOSINOPHILS 1.6 %; HEMATOCRIT 37.7 % (37.0-47.0); HEMOGLOBIN 12.6 gm/dL (12.0-15.0); LYMPHOCYTES 21.5 %; MCH 31.9 pg (26.0-34.0); MCHC 33.5 g/dL (28.0-37.0); MCV 95.1 fL (80.0-100.0); MPV 7.5 fl. (7.2-11.1); NUCLEATED RBCS 0 /100WBC; PLATELET COUNT* 245 thou/uL (150-400); POLYS 70.3 %; RBC 3.96 mil/uL (4.20-5.00); RDW-CV 13.6 % (10.5-14.5); WBC 6.5 thou/uL (4.0-11.0)
[2018-08-16 10:30] LABS: ANION GAP 9 mmol/L (7-16); BUN 15 mg/dL (7-18); CHLORIDE 98 mmol/L (98-107); CO2 29 mmol/L (21-32); CREATININE 0.7 mg/dL (0.6-1.3); GLUCOSE 100 mg/dL (70-99); POTASSIUM 3.8 mmol/L (3.5-5.1); SODIUM 136 mmol/L (136-145)
[2018-08-16 10:42] LABS: ALBUMIN 3.4 g/dL (3.4-5.0); ALKALINE PHOSPHATASE 71 U/L (46-116); SGOT 16 U/L (15-37); SGPT 22 U/L (30-65); TOTAL BILIRUBIN 0.4 mg/dL (<0.1-1.0); TOTAL PROTEIN 7.7 g/dL (6.4-8.2); TROPONIN-I LEVEL <0.06 ng/mL (<0.06)
[2018-08-16] MEDS ORDERED: ZOFRAN ODT4 MG DISSOLVE (12:10)
[2018-08-16] MEDS ORDERED: ANTIVERT25 MG PO (12:10)
[2018-08-16 13:05] VITALS: BP 148/64
--- NOTE | 2018-08-16 18:14 | EKG ---
[place] [address] ELECTROCARDIOGRAM REPORT Name: MARVIN DARDEN Room: [facility]#: [id number] Admission: 08/16/18 Attend Phys: Discharge: 08/16/18 Date of : 32 Report #: [id number] THIS REPORT FOR: //name// [facility] ED Test Date: 2018-08-16 Test Time: 10:13:01 Pat Name: MARVIN DARDEN Department: Room: Gender: F Opener Verifier Packer Customs: Everett MCKENZIE : 1930 Requested By: Joaquín Escalona Order Number: [id number] MD: Gen Hastings Measurements Intervals [place] Rate: 66 P: 9 [place]: 186 QRS: -46 QRSD: 109 T: 25 QT: 433 QTc: 454 Interpretive Statements Sinus rhythm Atrial premature complex Left anterior fascicular block Left ventricular hypertrophy Compared to ECG 07/25/2018 06:48:38 Atrial premature complex(es) now present Right bundle-branch block no longer present Electronically Signed On 08-16-2018 18:14:08 CARTOGRAPHY PROFESSOR by Gen Hastings [email or web address] <ELECTRONICALLY SIGNED> By: Gen Hastings MD, FACC 08/16/18 1814 1013 1013 Gen Hastings MD, FAC /EPI
== END 2018-08-16 13:05 | disposition home or self-care (01) ==
LOC: M.ERS 09:44
PROVIDERS: Emergency Medicine Emergency Medical Services
DX: R42 Dizziness and giddiness (principal); R11.2 Nausea with vomiting, unspecified; I10 Essential (primary) hypertension; J45.909 Unspecified asthma, uncomplicated; K21.9 Gastro-esophageal reflux disease without esophagitis; E03.9 Hypothyroidism, unspecified; E78.00 Pure hypercholesterolemia, unspecified; Z88.8 Allergy status to other drugs, medicaments and biological substances

== ENCOUNTER → 2018-08-27 | Outpatient (CLI) | payer OTHER, MEDICAID ==
[~2018-08-27] MED LIST changes: +ANTIVERT25 MG PO; +ZOFRAN ODT4 MG DISSOLVE
--- NOTE | ~2018-08-27 | PAINCON ---
[address] [address] PAIN MANAGEMENT CONSULTATION Name: MARVIN DARDEN Room: [facility] Teresa#: [id number] Admission: 08/27/18 Attend Phys: Brooks Mariscal MD Discharge: Date of : 32 Report #: [id number] THIS REPORT FOR: //name// CC: Florinda Mariscal DATE OF SERVICE: 08/27/2018 CHIEF COMPLAINT: Here to have my medications renewed the shingles are still bad. HISTORY: The patient is an 88-year-old female who has been seen in the pain clinic. She continues to suffer from post-herpetic neuralgia. As you recall, she had an episode of shingles. Continues to find that the pain is problematic. She feels that her medications have been beneficial and has returned to the pain clinic for renewal of those medications. She feels that the hydrocodone is helpful. She is not having any complications with this medication. Feels that the Lyrica 50 mg 3 times daily is helpful with the burning and shooting pain. She has returned today for refill of her medication. Pain is affecting the right breast area. She has been seen in the Emergency Room because of some dizziness and lightheadedness. She was given meclizine because of dizziness. She feels that indeed that inner ear problem is the most likely cause of her dizziness. She does not feel that the Lyrica was. She would like to continue using the Lyrica because she feels that has been efficacious. ALLERGIES: No known drug allergies. MEDICATIONS: Albuterol 2.5 mg q.i.d., nortriptyline 10 mg t.i.d., amlodipine 5 mg, risedronate 150 mg monthly, gabapentin, Lyrica 50 mg 1 p.o. t.i.d., hydrocodone 5/325 one p.o. q.4-6 hours, gabapentin 600 mg t.i.d., had been used, but has been discontinued, meclizine 25 mg q.i.d. p.r.n., Colace, trazodone 150 mg at bedtime, aspirin 81 mg, lisinopril 40 mg, Caltrate 600 mg, Lialda 12.5 mg time release, levothyroxine 100 mcg, lovastatin 40 mg at bedtime, ProAir 2 puffs daily, Advair Diskus 1 puff b.i.d., omeprazole 40 mg daily. PAIN CLINIC ASSESSMENT/PQRS: 1. The patient does have some arthritic changes involving her knees bilaterally, status post replacement of the knees. She is not being treated for rheumatoid arthritis. 2. Height 4 feet 9 inches, weight 148 pounds, BMI is 32. 3. Vital signs: Blood pressure 150/78, heart rate 77, respiratory rate 16, room air saturation 96%, temperature 97.6. Pain intensity 08/22. 4. Fall history. The patient has not fallen in the last 3 months. 5. Blood thinner. The patient is not on a blood thinning medication. 6. Hypertension. The patient is being treated for hypertension. 7. Opioid therapy greater than 6 weeks. The patient receives her medication [address] [place] [address] PAIN MANAGEMENT CONSULTATION Name: MARVIN DARDEN [facility] [id number] Admission: 08/27/18 Attend Phys: Brooks Mariscal MD Discharge: Date of : 32 Report #: [id number] from one source, the pain clinic using hydrocodone to help with shingles. 8. Risk assessment tool, low for opioid use. 9. Functional assessment tool 47/70 rest indicating moderate impact on activities of daily living secondary to pain. 10. Recreational drug use. The patient denies use of recreational drugs. 11. Tobacco: The patient denies use of tobacco. 12. Alcohol: The patient denies use of alcoholic beverages. PHYSICAL EXAMINATION: GENERAL: The patient is a well-developed, well-nourished, small female. Appears her stated age. She is alert and oriented x 3. Her affect is appropriate. Speech is fluent. HEENT: Normocephalic, atraumatic. Extraocular eye muscles intact. Sclerae is nonicteric. Mucous membranes are moist. The patient is wearing glasses. NECK: Without adenopathy. Good range of motion. Upper extremity judged to be 4/5 for the major muscle groups with symmetry. MUSCULOSKELETAL: Without significant scoliosis or lordosis. The patient is slightly kyphotic. ABDOMEN: Nontender, protuberant. EXTREMITIES: Lower extremity muscle strength is judged to be 4+/5 for the major muscle groups. The patient use her arms to push herself from a sitting to a standing position with walking though she uses a cane. LUNGS: Generally clear. The patient does have some remnants of shingles outbreak in the T6/T7 distribution. No lesions noted. The patient continues to have some soreness and tenderness in the anterior portion of her breast in the area of the shingles outbreak. IMPRESSION: 1. History of shingles-2 years' status post herpetic neuralgia involving T6/T7 dermatomal distribution. 2. Asthma. 3. Gastroesophageal reflux. 4. Dysequilibrium. 5. Chronic ulcerative colitis. 6. Post-herpetic neuralgia. 7. Insomnia. 8. Generalized anxiety disorder. 9. Osteoporosis. 10. Hypertension. 11. Osteopenia. 12. Hypothyroidism. 13. Eczema. 14. History of cancer in situ/basal cell. 15. Hyperlipidemia. 16. 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 17. [place] [address] PAIN MANAGEMENT CONSULTATION Name: MARVIN DARDEN Room: [facility] Teresa#: [id number] Admission: 08/27/18 Attend Phys: Brooks Mariscal MD Discharge: Date of : 32 Report #: [id number] RECOMMENDATIONS: We discussed treatment options with the patient. She feels that the current use of Lyrica and gabapentin are quite helpful. That in combination with hydrocodone helps decrease her pain. She rates it as a 1/10 at this juncture. Notes that she has shooting pains and worsening of her pain without use of her Lyrica. She was seen in the Emergency Room. She said that she was seen on 2 occasions. It was felt that her dizziness might be caused by in an inner ear disturbance/problem by her physician. She was placed on meclizine. She is taking 25 mg of that medications p.r.n. She has noticed resolution of dizziness. She continues with the gabapentin and Lyrica. We will continue with her medications. A script for her medications have been rewritten. She will call us if she has any concerns. We would like to thank you for letting us participate in her care. We hope she continues to improve. By: [id number]. Tucker Mariscal MD /nt
== END ==
LOC: M.PC 11:50
DX: J45.909 Unspecified asthma, uncomplicated (principal); K21.9 Gastro-esophageal reflux disease without esophagitis; R42 Dizziness and giddiness; G89.29 Other chronic pain; K51.90 Ulcerative colitis, unspecified, without complications; B02.29 Other postherpetic nervous system involvement; G47.00 Insomnia, unspecified; M81.8 Other osteoporosis without current pathological fracture; I10 Essential (primary) hypertension; E03.9 Hypothyroidism, unspecified; E78.5 Hyperlipidemia, unspecified; M85.80 Other specified disorders of bone density and structure, unspecified site; L30.9 Dermatitis, unspecified; L71.9 Rosacea, unspecified; F41.9 Anxiety disorder, unspecified; M17.0 Bilateral primary osteoarthritis of knee; Z86.000 Personal history of in-situ neoplasm of breast; Z86.19 Personal history of other infectious and parasitic diseases; Z79.899 Other long term (current) drug therapy

== ENCOUNTER → 2018-11-21 | Outpatient (CLI) | payer OTHER, MEDICAID ==
--- NOTE | ~2018-11-21 | PAINCON ---
[address] [address] PAIN MANAGEMENT CONSULTATION Name: MARVIN DARDEN Room: [facility].#: [id number] Admission: 11/21/18 Attend Phys: Brooks Mariscal MD Discharge: Date of : 32 Report #: [id number] THIS REPORT FOR: //name// CC: Florinda Mariscal DATE OF SERVICE: 11/21/2018 CHIEF COMPLAINT: Here for medications. She still have the shingles pain. HISTORY: The patient is an 88-year-old female who has been followed in the pain clinic because of chronic pain. As you recall, she suffers from postherpetic neuralgia. She still has pain, which is problematic. Finds that her medications continue to be helpful. She still finds that the pain influences her activities of daily living. She has had no complication from her medications. She feels that the Lyrica is still helpful. She takes this 3 times a day to help with the burning and shooting discomfort. She has pain involving the right breast area. She has returned today with a desire to renew her medications. ALLERGIES: No known drug allergies. CURRENT MEDICATIONS: Albuterol 2.5 mg q.i.d., nortriptyline 10 mg t.i.d., amlodipine 5 mg, Risedronate 150 mg monthly, gabapentin, Lyrica 50 mg 1 p.o. t.i.d., hydrocodone 5/325 mg one p.o. 4-6 hours, gabapentin 600 mg t.i.d., the patient use this in the past, but has discontinued its use; meclizine 25 mg q.i.d. p.r.n., Colace, trazodone 150 mg at bedtime, aspirin 81 mg, lisinopril 40 mg, Caltrate 600 mg, Lialda 12.5 mg time release, levothyroxine 100 mcg, atorvastatin 40 mg at bedtime, ProAir 2 puffs daily, Advair Diskus 1 puff b.i.d., and omeprazole 40 mg daily. PAIN CLINIC ASSESSMENT/PQRS: 1. The patient has arthritic changes involving her knees bilaterally and has had knee replacements. She is not being treated for rheumatoid arthritis. 2. Height 4 feet 9 and weight is 147 pounds, BMI is 32. 3. Vital signs; blood pressure 143/71, heart rate 75, respiratory rate 16, room air saturation 97%, temperature 98.3. 4. Pain intensity 1/10 at this juncture. 5. Fall history, the patient has not fallen in the last 3 months. 6. Blood thinner. The patient is not on a blood thinning medication. 7. Hypertension. The patient is being treated for hypertension. 8. Opioids greater than 6 weeks. The patient received medication [facility]. 9. Risk assessment tool, low for opioid use. 10. Functional assessment tool 47/70. 11. Recreational drug use. The patient denies use of [place] [address] PAIN MANAGEMENT CONSULTATION Name: MARVIN DARDEN Room: [facility]#: [id number] Admission: 11/21/18 Attend Phys: Brooks Mariscal MD Discharge: Date of : 32 Report #: [id number] 12. Tobacco: The patient denies use of tobacco. 13. Alcohol: The patient denies use of alcoholic beverages. PHYSICAL EXAMINATION: GENERAL: The patient is a well-developed, well-nourished, small female. Appears her stated age. She is alert and oriented x 3. Affect is appropriate. Speech is fluent. HEENT: Normocephalic, atraumatic. Extraocular eye muscles intact. Sclerae nonicteric. Mucous membranes are moist. The patient is wearing glasses. NECK: Without adenopathy or JVD. MUSCULOSKELETAL: Without significant scoliosis or lordosis. The patient is slightly kyphotic. ABDOMEN: Nontender. Bowel sounds present. EXTREMITIES: Upper extremity muscle strength 5/4+ for the major muscle groups in the upper extremity. The patient has pain in her arms and uses her arms to push herself from a sitting to standing position. Walk; walks with a cane. LUNGS: Generally clear. The patient has remnants of shingles pain in the T6/T7 distribution. No lesions. The patient has some anterior pain in the anterior portion near her breasts because of the shingles outbreak. IMPRESSION: 1. History of shingles 2 years ago, status post postherpetic neuralgia involving T6-T7 dermatomal distribution. 2. Asthma. 3. Gastroesophageal reflux. 4. Dysequilibrium. 5. Chronic ulcerative colitis. 6. Postherpetic neuralgia. 7. Insomnia. 8. Generalized anxiety disorder. 9. Osteoporosis. 10. Hypertension. 11. Osteopenia. 12. Hypothyroidism. 13. Eczema. 14. History of cancer in situ basal cell. 15. Hyperlipidemia. 16. Degenerative joint disease involving the knees. 17. Rosacea. RECOMMENDATIONS: We discussed treatment options with the patient. At this juncture, we will continue with her medications. A script for Lyrica has been rewritten. The patient will also continue with the hydrocodone. She feels that this medication is helpful. She will call us if she has any concerns. The patient will continue the meclizine for dysequilibrium. She will call [place] [address] PAIN MANAGEMENT CONSULTATION Name: MARVIN DARDEN Chantale Room: [facility]#: [id number] Admission: 11/21/18 Attend Phys: Brooks Mariscal MD Discharge: Date of : 32 Report #: [id number] has any concerns. A script for her medications have been rewritten. She will call us if she has concerns. By: [id number]. Tucker Mariscal MD /nt
== END ==
LOC: M.PC 04:50
DX: G89.29 Other chronic pain (principal); I10 Essential (primary) hypertension; K21.9 Gastro-esophageal reflux disease without esophagitis; F41.1 Generalized anxiety disorder; M81.0 Age-related osteoporosis without current pathological fracture; M85.80 Other specified disorders of bone density and structure, unspecified site; E03.9 Hypothyroidism, unspecified; E78.5 Hyperlipidemia, unspecified; Z79.899 Other long term (current) drug therapy; Z96.653 Presence of artificial knee joint, bilateral; Z79.891 Long term (current) use of opiate analgesic

== ENCOUNTER 2019-02-03 17:55 | Observation (INO) | payer OTHER, MEDICAID ==
[~2019-02-03] VITALS: Ht 147.3 cm; Wt 67.1 kg
[2019-02-03 17:56] VITALS: BP 166/63
[2019-02-03] MEDS ORDERED: CATAPRES0.2 M1 PO (18:10)
[2019-02-03] MEDS ORDERED: PREDNISONE 20 M20 MG PO (18:20)
[2019-02-03] MEDS ORDERED: AZITHROMYCIN 2250 MG PO (18:20)
[2019-02-03] MEDS ORDERED: LIALDA1.2 GM PO (18:21)
[2019-02-03] MEDS ORDERED: APRISO0.375 GM PO (18:21)
[2019-02-03 18:27] LABS: ABSOLUTE BASOPHILS 0.1 thou/uL (0.0-0.2); ABSOLUTE NEUTROPHILS 7.7 thou/uL (1.6-8.1); BASOPHILS 1.1 %; HEMOGLOBIN 13.4 gm/dL (12.0-15.0); NUCLEATED RBCS 0 /100WBC; PLATELET COUNT* 217 thou/uL (150-400)
[2019-02-03 18:27] LABS: URINE BILIRUBIN NEGATIVE (Negative); URINE BLOOD 2+ (Negative); URINE CLARITY CLEAR; URINE COLOR YELLOW; URINE GLUCOSE-RANDOM NEGATIVE (Negative); URINE KETONES NEGATIVE (Negative); URINE LEUKOCYTES-REFLEX TRACE (Negative); URINE NITRITE-REFLEX NEGATIVE (Negative); URINE PROTEIN NEGATIVE (Negative); URINE SPECIFIC GRAVITY <= 1.005 (1.005-1.030); URINE UROBILINOGEN 0.2 E.U./dl (0.2-1.0)
[2019-02-03 18:28] LABS: ABSOLUTE EOSINOPHILS 0.1 thou/uL (0.0-0.7); ABSOLUTE LYMPHOCYTES 2.8 thou/uL (0.8-5.3); ABSOLUTE MONOCYTES 0.8 thou/uL (0.0-1.2); EOSINOPHILS 1.1 %; HEMATOCRIT 40.4 % (37.0-47.0); LYMPHOCYTES 23.8 %; MCH 31.3 pg (26.0-34.0); MCHC 33.2 g/dL (28.0-37.0); MCV 94.1 fL (80.0-100.0); MONOCYTES 7.2 %; MPV 8.1 fl. (7.2-11.1); POLYS 66.8 %; RBC 4.29 mil/uL (4.20-5.00); RDW-CV 14.7 % (10.5-14.5); WBC 11.6 thou/uL (4.0-11.0)
[2019-02-03 18:35] LABS: ANION GAP 8 mmol/L (7-16); BUN 11 mg/dL (7-18); CALCIUM 9.5 mg/dL (8.5-10.1); CHLORIDE 102 mmol/L (98-107); CO2 29 mmol/L (21-32); CREATININE 0.7 mg/dL (0.6-1.3); GLUCOSE 98 mg/dL (70-99); POTASSIUM 3.7 mmol/L (3.5-5.1); SODIUM 139 mmol/L (136-145)
[2019-02-03 18:42] LABS: MUCUS None Seen strn/LPF (None Seen); SQUAMOUS 0-3 Few /LPF (0-3)
[2019-02-03 18:43] LABS: BACTERIA-REFLEX 1-9 Few /HPF (None Seen); CASTS None Seen /LPF (None Seen); CRYSTALS None Seen /LPF (None Seen); URINE RBC 3-10 Few /HPF (0-2); URINE WBC-REFLEX 6-15 Few /HPF (0-5)
[2019-02-03 18:48] LABS: ALBUMIN 3.5 g/dL (3.4-5.0); ALKALINE PHOSPHATASE 58 U/L (46-116); LIPASE 127 U/L (73-393); SGOT 20 U/L (15-37); SGPT 31 U/L (30-65); TOTAL BILIRUBIN 0.4 mg/dL (<0.1-1.0); TOTAL PROTEIN 7.5 g/dL (6.4-8.2); TROPONIN-I LEVEL <0.06 ng/mL (<0.06)
[2019-02-03 19:39] VITALS: BP 164/80
[2019-02-03 20:00] VITALS: BP 130/65
[2019-02-04] VITALS (10 sets, daily range): BP systolic 105–132; BP diastolic 40–63
[2019-02-04 00:41] LABS: ABSOLUTE BASOPHILS 0.1 thou/uL (0.0-0.2); ABSOLUTE EOSINOPHILS 0.1 thou/uL (0.0-0.7); ABSOLUTE MONOCYTES 0.9 thou/uL (0.0-1.2); ABSOLUTE NEUTROPHILS 6.3 thou/uL (1.6-8.1); BASOPHILS 1.2 %; HEMATOCRIT 39.8 % (37.0-47.0); HEMOGLOBIN 13.1 gm/dL (12.0-15.0); LYMPHOCYTES 34.9 %; MCH 31.2 pg (26.0-34.0); MCHC 32.9 g/dL (28.0-37.0); MONOCYTES 7.8 %; MPV 8.2 fl. (7.2-11.1); NUCLEATED RBCS 0 /100WBC; PLATELET COUNT* 219 thou/uL (150-400); POLYS 55.1 %; RBC 4.19 mil/uL (4.20-5.00); RDW-CV 14.7 % (10.5-14.5); WBC 11.3 thou/uL (4.0-11.0)
[2019-02-04 00:58] LABS: CALCIUM 9.2 mg/dL (8.5-10.1); CREATININE 0.6 mg/dL (0.6-1.3); POTASSIUM 3.7 mmol/L (3.5-5.1)
--- NOTE | 2019-02-04 10:21 | EKG ---
[place] [address] ELECTROCARDIOGRAM REPORT Name: MARVIN DARDEN Room: [address] ADM IN .R.#: [id number] Admission: 02/03/19 Attend Phys: Kwadwo Gomez MD Discharge: Date of : 32 Report #: [id number] THIS REPORT FOR: //name// [facility] ED Test Date: 2019-02-03 Test Time: 18:27:18 Pat Name: MARVIN DARDEN Department: Room: [facility] Gender: F Sustainability Project Coordinator: : 1930 Requested By: Joaquín Escalona Order Number: [id number] MD: Giovanni Hook Measurements Intervals [place] Rate: 86 P: 15 [place]: 171 QRS: -46 QRSD: 100 T: 37 QT: 386 QTc: 462 Interpretive Statements Sinus rhythm Left anterior fascicular block Abnormal R-wave progression, late transition Left ventricular hypertrophy Artifact in lead(s) I,II,aVR Compared to ECG 08/16/2018 10:13:01 Atrial premature complex(es) no longer present Electronically Signed On 02-04-2019 10:20:50 CDT by Giovanni Hook [email or web address] <ELECTRONICALLY SIGNED> By: Giovanni Hook MD, FAC 02/04/19 1020 26 26 Giovanni Hook MD, [facility] /EPI
[2019-02-05] VITALS: BP 134/68
[2019-02-05 04:17] VITALS: BP 145/75
[2019-02-05 05:15] LABS: ABSOLUTE EOSINOPHILS 0.1 thou/uL (0.0-0.7); ABSOLUTE LYMPHOCYTES 2.5 thou/uL (0.8-5.3); ABSOLUTE MONOCYTES 0.8 thou/uL (0.0-1.2); ABSOLUTE NEUTROPHILS 6.3 thou/uL (1.6-8.1); BASOPHILS 0.5 %; EOSINOPHILS 0.8 %; HEMATOCRIT 35.2 % (37.0-47.0); HEMOGLOBIN 11.8 gm/dL (12.0-15.0); LYMPHOCYTES 25.8 %; MCH 32.3 pg (26.0-34.0); MCHC 33.5 g/dL (28.0-37.0); MCV 96.5 fL (80.0-100.0); MONOCYTES 8.6 %; MPV 8.9 fl. (7.2-11.1); NUCLEATED RBCS 0 /100WBC; PLATELET COUNT* 178 thou/uL (150-400); POLYS 64.3 %; RBC 3.64 mil/uL (4.20-5.00); RDW-CV 14.6 % (10.5-14.5); WBC 9.8 thou/uL (4.0-11.0)
[2019-02-05 05:46] LABS: CALCIUM 8.4 mg/dL (8.5-10.1); CREATININE 0.6 mg/dL (0.6-1.3); POTASSIUM 3.3 mmol/L (3.5-5.1)
[2019-02-05 08:00] VITALS: BP 144/80
[2019-02-05 11:29] VITALS: BP 141/68
[2019-02-05 11:39] VITALS: BP 136/65
[2019-02-05] MEDS ORDERED: TUMS PO (13:07)
[2019-02-05 13:08] VITALS: BP 106/42
[2019-02-05] MEDS ORDERED: CEFUROXIME500 MG PO (13:13)
== END 2019-02-05 13:49 | disposition home or self-care (01) ==
LOC: M.ERS 17:55 → M.TBA-ER 19:01 → M.2W 19:01
PROVIDERS: Emergency Medicine Emergency Medical Services; ADMIT Internal Medicine
DX: N39.0 Urinary tract infection, site not specified (principal); R42 Dizziness and giddiness; R53.1 Weakness; D72.829 Elevated white blood cell count, unspecified; R65.10 Systemic inflammatory response syndrome (SIRS) of non-infectious origin without acute organ dysfunction; E86.0 Dehydration; I10 Essential (primary) hypertension; J45.909 Unspecified asthma, uncomplicated; K52.3 Indeterminate colitis; K21.9 Gastro-esophageal reflux disease without esophagitis; E78.00 Pure hypercholesterolemia, unspecified; Z98.890 Other specified postprocedural states; Z79.899 Other long term (current) drug therapy; Z87.891 Personal history of nicotine dependence

== ENCOUNTER 2019-02-06 10:55 | Inpatient (IN) | payer OTHER, MEDICAID ==
[~2019-02-06] VITALS: Ht 147.3 cm; Wt 64.4 kg
[~2019-02-06 10:55] MED LIST changes: +APRISO0.375 GM PO; +AZITHROMYCIN 2250 MG PO; +CATAPRES0.2 M1 PO; +CEFUROXIME500 MG PO; +PREDNISONE 20 M20 MG PO; +TUMS PO
[2019-02-06 10:58] VITALS: BP 154/73
[2019-02-06 11:23] LABS: URINE BILIRUBIN NEGATIVE (Negative); URINE BLOOD 2+ (Negative); URINE CLARITY CLEAR; URINE COLOR YELLOW; URINE GLUCOSE-RANDOM NEGATIVE (Negative); URINE KETONES 1+ (Negative); URINE LEUKOCYTES-REFLEX NEGATIVE (Negative); URINE NITRITE-REFLEX NEGATIVE (Negative); URINE PROTEIN NEGATIVE (Negative); URINE SPECIFIC GRAVITY 1.015 (1.005-1.030); URINE UROBILINOGEN 0.2 E.U./dl (0.2-1.0)
[2019-02-06 11:36] LABS: ABSOLUTE BASOPHILS 0.2 thou/uL (0.0-0.2); ABSOLUTE EOSINOPHILS 0.1 thou/uL (0.0-0.7); ABSOLUTE LYMPHOCYTES 2.2 thou/uL (0.8-5.3); ABSOLUTE NEUTROPHILS 10.7 thou/uL (1.6-8.1); BASOPHILS 1.1 %; EOSINOPHILS 0.5 %; HEMATOCRIT 39.5 % (37.0-47.0); HEMOGLOBIN 13.3 gm/dL (12.0-15.0); LYMPHOCYTES 15.8 %; MCH 31.6 pg (26.0-34.0); MCHC 33.6 g/dL (28.0-37.0); MCV 94.3 fL (80.0-100.0); MPV 8.3 fl. (7.2-11.1); NUCLEATED RBCS 0 /100WBC; PLATELET COUNT* 219 thou/uL (150-400); POLYS 75.6 %; RBC 4.19 mil/uL (4.20-5.00); RDW-CV 14.7 % (10.5-14.5); WBC 14.1 thou/uL (4.0-11.0)
[2019-02-06 11:44] LABS: ANION GAP 9 mmol/L (7-16); BUN 9 mg/dL (7-18); CALCIUM 9.7 mg/dL (8.5-10.1); CHLORIDE 98 mmol/L (98-107); CO2 29 mmol/L (21-32); CREATININE 0.5 mg/dL (0.6-1.3); GLUCOSE 99 mg/dL (70-99); POTASSIUM 3.9 mmol/L (3.5-5.1); SODIUM 136 mmol/L (136-145)
[2019-02-06 11:54] LABS: SQUAMOUS 0-3 Few /LPF (0-3)
[2019-02-06 11:55] LABS: ALBUMIN 3.3 g/dL (3.4-5.0); ALKALINE PHOSPHATASE 63 U/L (46-116); LIPASE 91 U/L (73-393); NT-PRO BRAIN NAT PEPTIDE 251 pg/mL (<300); SGOT 19 U/L (15-37); SGPT 26 U/L (30-65); TOTAL BILIRUBIN 0.5 mg/dL (<0.1-1.0); TOTAL PROTEIN 7.5 g/dL (6.4-8.2); TROPONIN-I LEVEL <0.06 ng/mL (<0.06)
[2019-02-06 11:56] LABS: URINE RBC 3-10 Few /HPF (0-2); URINE WBC-REFLEX 6-15 Few /HPF (0-5)
[2019-02-06 11:57] LABS: BACTERIA-REFLEX 1-9 Few /HPF (None Seen); CASTS None Seen /LPF (None Seen); CRYSTALS None Seen /LPF (None Seen); MUCUS None Seen strn/LPF (None Seen)
[2019-02-06 20:00] VITALS: BP 137/73
[2019-02-06 20:01] VITALS: BP 158/78
[2019-02-07 04:06] LABS: HEMATOCRIT 36.5 % (37.0-47.0); HEMOGLOBIN 11.9 gm/dL (12.0-15.0); MCH 31.1 pg (26.0-34.0); MCHC 32.7 g/dL (28.0-37.0); MCV 95.2 fL (80.0-100.0); MPV 8.4 fl. (7.2-11.1); RBC 3.84 mil/uL (4.20-5.00); RDW-CV 14.2 % (10.5-14.5); WBC 12.1 thou/uL (4.0-11.0)
[2019-02-07 04:23] LABS: CALCIUM 8.8 mg/dL (8.5-10.1); CREATININE 0.7 mg/dL (0.6-1.3); MAGNESIUM 1.7 mg/dL (1.8-2.4); POTASSIUM 3.3 mmol/L (3.5-5.1)
[2019-02-07 08:00] VITALS: BP 140/68
--- NOTE | 2019-02-07 09:41 | EKG ---
[place] [address] ELECTROCARDIOGRAM REPORT Name: MARVIN DARDEN Room: [address] ADM IN .R.#: [id number] Admission: 02/06/19 Attend Phys: Alda Ornelas MD Discharge: Date of : 32 Report #: [id number] THIS REPORT FOR: //name// [facility] ED Test Date: 2019-02-06 Test Time: 11:28:53 Pat Name: MARVIN DARDEN Department: Room: [facility] Gender: F Uranium Processing Supervisor: : 1930 Requested By: Rufus Sexton Order Number: [id number] MD: Giovanni Hook Measurements Intervals [place] Rate: 76 P: 34 [place]: 159 QRS: -42 QRSD: 102 T: 36 QT: 370 QTc: 417 Interpretive Statements Sinus rhythm Left anterior fascicular block Left ventricular hypertrophy Compared to ECG 02/03/2019 18:27:18 No significant changes Electronically Signed On 02-07-2019 9:41:11 CDT by Giovanni Hook [email or web address] <ELECTRONICALLY SIGNED> By: Giovanni Hook MD, [facility] 02/07/19 0941 1128 1128 Giovanni Hook MD, [facility] /EPI
[2019-02-07 16:30] VITALS: BP 138/78
[2019-02-07 20:15] VITALS: BP 146/74
[2019-02-08 08:00] VITALS: BP 162/80
[2019-02-08 16:30] VITALS: BP 131/56
[2019-02-08 20:00] VITALS: BP 127/52
[2019-02-09 08:00] VITALS: BP 141/71
[2019-02-09 16:30] VITALS: BP 145/73
[2019-02-09 20:00] VITALS: BP 118/58
[2019-02-10] MEDS ORDERED: LEVAQUIN 500 M500 M2 PO (08:25)
[2019-02-10] MEDS ORDERED: TRANSDERM-SCOP1 EACH TRANSDERM (08:25)
[2019-02-10 09:00] VITALS: BP 146/77
[2019-02-10 10:45] VITALS: BP 118/58
[2019-02-10 10:50] VITALS: BP 118/58
[2019-02-10 12:51] VITALS: BP 118/58
[2019-02-10 15:03] VITALS: BP 118/58
== END 2019-02-10 15:00 | disposition home health service (06) | DRG 690 ==
LOC: M.ERS 10:55 → M.TBA-ER 12:19 → M.ORTHSURG 12:19
PROVIDERS: Emergency Medicine; ADMIT Internal Medicine
DX: N39.0 Urinary tract infection, site not specified (principal); R65.10 Systemic inflammatory response syndrome (SIRS) of non-infectious origin without acute organ dysfunction; I10 Essential (primary) hypertension; J45.909 Unspecified asthma, uncomplicated; K21.9 Gastro-esophageal reflux disease without esophagitis; E03.9 Hypothyroidism, unspecified; E78.00 Pure hypercholesterolemia, unspecified; R53.81 Other malaise; M79.642 Pain in left hand; R25.1 Tremor, unspecified; Z98.49 Cataract extraction status, unspecified eye; Z79.899 Other long term (current) drug therapy

== ENCOUNTER → 2019-02-20 | Outpatient (CLI) | payer OTHER, MEDICAID ==
[~2019-02-20] MED LIST changes: +HYDROCODON-ACE1 EA11 PO; +LEVAQUIN 500 M500 M2 PO; +TRANSDERM-SCOP1 EACH TRANSDERM
--- NOTE | ~2019-02-20 | PAINCON ---
[address] [address] PAIN MANAGEMENT CONSULTATION Name: MARVIN DARDEN Room: [facility].#: [id number] Admission: 02/20/19 Attend Phys: Brooks Mariscal MD Discharge: Date of : 32 Report #: [id number] THIS REPORT FOR: //name// CC: Florinda Mariscal DATE OF SERVICE: 02/20/2019 CHIEF COMPLAINT: "The medications are helpful. I was in the hospital because of urinary tract infection." HISTORY OF PRESENT ILLNESS: The patient is an 88-year-old female who has been followed in the pain clinic. As you recall, she had an episode of shingles. She developed postherpetic neuralgia. It involves the right chest wall area and the right breast area. She continues to find the pain improves with her current medical regimen. Notes that she is experiencing some shooting pain in her back, which oftentimes feels like stabbing, shocking pain. After some time, the pain "dyes off." She recently took a pain pill about an hour and half ago. She reports her pain as a 2. ALLERGIES: No known drug allergies. CURRENT MEDICATIONS: Albuterol 2.5 mg q.i.d., nortriptyline 10 mg t.i.d., amlodipine 5 mg, risedronate 150 mg monthly, gabapentin, Lyrica 50 mg 1 p.o. t.i.d., hydrocodone 5/325 one p.o. 4-6 hours, gabapentin 600 mg t.i.d., the patient used this in the past and now has discontinued it, meclizine 25 mg q.i.d. p.r.n., Colace, trazodone 150 mg at bedtime, aspirin 81 mg, lisinopril 40 mg, Caltrate 600 mg, Lialda 12.5 mg, levothyroxine 100 mcg, atorvastatin 40 mg at bedtime, ProAir 2 puffs daily, Advair Diskus 1 puff b.i.d., and omeprazole 40 mg. PAIN CLINIC ASSESSMENT/PQRS: 1. The patient has arthritic changes involving both knees and has had knee replacements. She is not being treated for rheumatoid arthritis. 2. Height 4 feet 9 inches, weight 146 pounds, BMI is 31.8. 3. Vital Signs: Blood pressure 135/68, respiratory rate 16, heart rate 94, saturation 94, temperature 98.2. 4. Pain intensity 10. 5. Fall history: The patient has not fallen in the last 3 months. 6. Blood thinner. The patient is not on a blood thinning medication. 7. Hypertension. The patient is being treated for hypertension. 8. Opioids greater than 6 weeks. The patient [facility]. 9. Risk assessment tool, low for opioid use. 10. Functional assessment tool 47/70. 11. Recreational drug use. The patient [place] [address] PAIN MANAGEMENT CONSULTATION Name: MARVIN DARDEN Room: [facility]#: [id number] Admission: 02/20/19 Attend Phys: Brooks Mariscal MD Discharge: Date of : 32 Report #: [id number] 12. Alcohol: The patient denies use of alcohol. 13. Tobacco: The patient denies use of tobacco. PHYSICAL EXAMINATION: GENERAL: The patient is a well-developed, well-nourished female. Appears her stated age. She is alert and oriented x 3. Her affect is appropriate. Speech is fluent. HEENT: Normocephalic, atraumatic. Extraocular eye muscles intact. Sclerae nonicteric. Mucous membranes moist. NECK: Without adenopathy or JVD. The patient is wearing glasses. MUSCULOSKELETAL: Without significant scoliosis, kyphosis or lordosis. The patient is slightly kyphotic. Walks with a forward bend and uses a cane. ABDOMEN: Nontender. Bowel sounds present. EXTREMITIES: Upper extremity muscle strength judged to be 5-/5 for the major muscle groups in the upper extremity. The patient has pain in her right arm under the armpit and in the area of her breast. Notes some pain that radiates from her mid back area to the anterior portion of her chest wall with a burning sensation. The patient without significant scoliosis, kyphosis or lordosis. LUNGS: Generally clear. The patient does complain of pain in the area of the shingles remnants at the T6-T7 dermatomal distribution. IMPRESSION: 1. History of shingles 2 years ago, status post postherpetic neuralgia involving T6-T7 dermatomal distribution. 2. Asthma. 3. Gastroesophageal reflux. 4. Dysequilibrium. 5. Chronic ulcerative colitis. 6. Postherpetic neuralgia. 7. Insomnia. 8. Generalized anxiety disorder. 9. Osteoporosis. 10. Hypertension. 11. Osteopenia. 12. Hypothyroidism. 13. Eczema. 14. History of cancer in situ, basal cell. 15. Hyperlipidemia. 16. Degenerative joint disease involving the knees. 17. Rosacea. RECOMMENDATIONS: We discussed treatment options with the patient. She feels that her medications are working reasonably well. She has had no complications with the medications. She recently was seen in the Emergency Room and has been treated for urinary tract infection. She states that she had an IV placed in the left arm. There was some swelling that took place. Still has some [facility] [address] [place] [address] PAIN MANAGEMENT CONSULTATION Name: MARVIN DARDEN Room: [facility]#: [id number] Admission: 02/20/19 Attend Phys: Brooks Mariscal MD Discharge: Date of : 32 Report #: [id number] discomfort in her hands. This IV was started about a week ago. She feels that is gradually improving. The patient feels that the hydrocodone is helpful. She also feels that the Lyrica medication is beneficial. She does not have any problems with her medications. We will continue with the medications and a script for hydrocodone 5/325 one p.o. q.4-6 hours has been rewritten. The patient will also continue with the Lyrica 50 mg 1 p.o. t.i.d. We would like to thank you for letting us participate in her care. We will continue to help control her pain using a complex medication regimen using narcotics. By: [id number]. Tucker Mariscal MD /nt
== END ==
LOC: M.PC 02-18 11:00
DX: M17.0 Bilateral primary osteoarthritis of knee (principal); E78.5 Hyperlipidemia, unspecified; M81.0 Age-related osteoporosis without current pathological fracture; M85.88 Other specified disorders of bone density and structure, other site; I10 Essential (primary) hypertension; E03.9 Hypothyroidism, unspecified; G47.00 Insomnia, unspecified; F41.9 Anxiety disorder, unspecified; M79.2 Neuralgia and neuritis, unspecified; K21.9 Gastro-esophageal reflux disease without esophagitis; B02.29 Other postherpetic nervous system involvement; J45.909 Unspecified asthma, uncomplicated; K51.90 Ulcerative colitis, unspecified, without complications; Z79.899 Other long term (current) drug therapy

== ENCOUNTER → 2019-06-24 | Outpatient (CLI) | payer OTHER, MEDICAID ==
[~2019-06-24] MED LIST changes: -ADVAIR HFA 230M12 GM INH; +AMLODIPINE PO; +AZO CRANBERRY1 EACH PO; +BASE B,POLYETHYL1 GM PO; +COLACE100 MG PO; +FLOVENT DISKUS50 MCG INH; +LEVOTHYROXINE100 MCG PO; +MULTIVITAMIN PO; +ROSUVASTATIN CA40 MG PO; +VISION FORMULA1 EACH PO; +WIXELA 250-501 EACH INH
--- NOTE | 2019-06-30 19:22 | PAINCON ---
[address] [address] PAIN MANAGEMENT CONSULTATION Name: MARVIN DARDEN [facility] [id number] Admission: 06/24/19 Attend Phys: Brooks Mariscal MD Discharge: Date of : 32 Report #: [id number] THIS REPORT FOR: //name// CC: Florinda Harrell DATE OF SERVICE: 06/24/2019 CHIEF COMPLAINT: Chronic pain because of post-herpetic neuralgia. HISTORY: The patient is an 89-year-old female who has been followed in the pain clinic. She has had pain, which has been quite problematic. She suffered from shingles. Since that time, she developed postherpetic neuralgia. It involves her back, right chest and the areas under her arm. This was about 3 years ago. It has continued to be problematic. Her current medical regimen has been somewhat helpful. She has returned today with the hopes of renewing her medication. She recently was hospitalized in May. This was because of colitis. She states that things have improved as on that front. She rates her pain as 5/10. She would like to have her medications renewed because they are beneficial. She does not have any problems with them. She rates her pain today as a 5/10. Continues to have some shocking stabbing, shooting types of pain associated with the postherpetic neuralgia on her right breast area and under the arm. ALLERGIES: No known drug allergies. CURRENT MEDICATIONS: Albuterol 2.5 mg q.i.d., nortriptyline 10 mg t.i.d., amlodipine 5 mg, risedronate 150 mg monthly, gabapentin, Lyrica 50 mg 1 p.o. t.i.d., hydrocodone 5/325 one p.o. q. 4-6 hours p.r.n., gabapentin, meclizine 25 mg q.i.d. p.r.n., Colace, trazodone 150 mg at bedtime, aspirin 81 mg, lisinopril 40 mg, Caltrate 600 mg, Lialda 12.5 mg, levothyroxine 100 mcg, Lipitor 40 mg, ProAir 2 puffs daily, Advair Diskus 1 puff b.i.d., and omeprazole 40 mg. PAIN CLINIC ASSESSMENT AND PQRS: 1. The patient has arthritis involving her knees and has had knee replacements. She is not being treated for rheumatoid arthritis. 2. Height 4 feet 9 inches, weight 145 pounds, BMI is 31.0 3. Vital Signs: Blood pressure 142/70, heart rate 87, respiratory rate 16, room air saturation is 98.3. 4. Pain intensity 5/10. 5. Fall history: The patient has not fallen in the last 3 months. 6. Blood thinner. The patient is not on a blood thinning medication. 7. Hypertension. The patient is being treated for hypertension. 8. Opioids greater than 6 weeks. The patient received medication from [facility] [place] [address] PAIN MANAGEMENT CONSULTATION Name: MARVIN DARDEN Room: [facility]#: [id number] Admission: 06/24/19 Attend Phys: Brooks Mariscal MD Discharge: Date of : 32 Report #: [id number] 9. Risk assessment tool, low for opioid use. 10. Functional assessment tool /. 11. Recreational drugs. The patient denies use of recreational drugs. 12. Alcohol. The patient denies use of alcoholic beverages. 13. Tobacco: The patient denies use of tobacco. PHYSICAL EXAMINATION: GENERAL: The patient is a well-developed female. She is alert and oriented x 3. Her affect is appropriate. Speech is fluent. HEENT: Normocephalic, atraumatic. Extraocular eye muscles intact. Sclerae nonicteric. Mucous membranes are moist. NECK: Without adenopathy or JVD. The patient is wearing glasses. MUSCULOSKELETAL: Without significant scoliosis, kyphosis or lordosis. The patient does walk slowly. She is slightly kyphotic. Has a forward bent/lean when walking using her cane. ABDOMEN: Nontender. Bowel sounds present. EXTREMITIES: Upper extremity muscle strength judged to be 5-/5 for the major muscle groups in the upper extremity. She has pain and discomfort in lower portion of her right armpit area. Has pain and discomfort in the area of her breast. Notes the pain radiates from the chest wall and have a burning consistency to it. The patient is without significant scoliosis or lordosis. LUNGS: Generally clear. The patient has complained of pain in the T7/T6 dermatomal distribution. IMPRESSION: 1. History of shingles approximately 3 years ago status post postherpetic neuralgia involving T6/T7 dermatomal distribution. 2. Gastroesophageal reflux. 3. Dysequilibrium. 4. Chronic ulcerative colitis. 5. Postherpetic neuralgia. 6. Insomnia. 7. Generalized anxiety disorder. 8. Osteoporosis. 9. Hypertension. 10. Osteopenia. 11. Hypothyroidism. 12. Eczema. 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 14. Hyperlipidemia. 15. Degenerative joint disease involving the knees. 16. Rosacea. RECOMMENDATIONS: We discussed treatment options with the patient. At this juncture, she feels that her medications are helpful. She would like to continue with the Lyrica. She feels that this medication is beneficial. She [facility] [address] [place] [address] PAIN MANAGEMENT CONSULTATION Name: MARVIN DARDEN Room: [facility]#: [id number] Admission: 06/24/19 Attend Phys: Brooks Mariscal MD Discharge: Date of : 32 Report #: [id number] also finds that the use of [place] is helpful. She has taken the medication as prescribed. She is not having any significant problems with these medications. She was hospitalized for colitis. Feels that this has improved. At this point, we will continue with her medications. A script for her medications have been rewritten. She will continue with Lyrica and hydrocodone. She will call us if she has any concerns. We would like to thank you for letting us participate in her care. The patient is aware that opioid medications can be problematic in certain patients. She is not having any significant problem with this medication and with her respiratory status. They are both stable. <ELECTRONICALLY SIGNED> By: Brooks Mariscal MD 06/30/19 1922 1101 1123N. Tucker Mariscal MD /nt
== END ==
LOC: M.PC 04:14
DX: K21.9 Gastro-esophageal reflux disease without esophagitis (principal); B02.29 Other postherpetic nervous system involvement; M81.0 Age-related osteoporosis without current pathological fracture; I10 Essential (primary) hypertension; M85.80 Other specified disorders of bone density and structure, unspecified site; E78.5 Hyperlipidemia, unspecified; E03.9 Hypothyroidism, unspecified; M17.0 Bilateral primary osteoarthritis of knee; G47.00 Insomnia, unspecified; F41.9 Anxiety disorder, unspecified; R42 Dizziness and giddiness

== ENCOUNTER → 2019-07-28 | Outpatient (CLI) | payer OTHER, MEDICAID | LOC: M.CT 12:51 | DX: J98.11 Atelectasis (principal); K44.9 Diaphragmatic hernia without obstruction or gangrene ==

== ENCOUNTER 2019-08-30 12:16 | Emergency (ER) | payer OTHER, MEDICAID ==
[~2019-08-30] VITALS: Ht 137.2 cm; Wt 62.1 kg
[2019-08-30] MEDS ORDERED: MUCINEX600 MG (12:26)
[2019-08-30] MEDS ORDERED: ADVAIR 100-501 EACH INH (12:27)
[2019-08-30] MEDS ORDERED: LYRICA25 MG PO (12:29)
[2019-08-30] MEDS ORDERED: KLOR-CON M2020 MEQ PO (12:29)
[2019-08-30] MEDS ORDERED: CLONIDINE HCL0.2 M2 PO (12:30)
[2019-08-30] MEDS ORDERED: AZITHROMYCIN500 MG PO (12:30)
[2019-08-30] MEDS ORDERED: APRISO0.375 GM PO (12:30)
[2019-08-30] MEDS ORDERED: OMEPRAZOLE40 MG PO (12:31)
[2019-08-30] MEDS ORDERED: NORCO 5-325 TA1 EAC1 PO (12:31)
[2019-08-30] MEDS ORDERED: RAYOS5 MG PO (12:43)
[2019-08-30] MEDS ORDERED: PAIN RELIEF325 MG PO (12:46)
[2019-08-30] MEDS ORDERED: BENADRYL25 MG (12:47)
[2019-08-30] MEDS ORDERED: CIPRO500 M1 PO (12:47)
[2019-08-30] MEDS ORDERED: MESALAMINE E0.375 GM PO (12:48)
[2019-08-30] MEDS ORDERED: LOVASTATIN 20 M20 MG PO (12:48)
[2019-08-30] MEDS ORDERED: LISINOPRIL2.5 MG PO (12:48)
[2019-08-30 12:54] LABS: ABSOLUTE BASOPHILS 0.1 thou/uL (0.0-0.2); ABSOLUTE EOSINOPHILS 0.3 thou/uL (0.0-0.7); ABSOLUTE MONOCYTES 0.9 thou/uL (0.0-1.2); ABSOLUTE NEUTROPHILS 4.1 thou/uL (1.6-8.1); BASOPHILS 0.9 %; EOSINOPHILS 3.7 %; HEMATOCRIT 39.5 % (37.0-47.0); HEMOGLOBIN 13.3 gm/dL (12.0-15.0); LYMPHOCYTES 35.6 %; MCH 31.8 pg (26.0-34.0); MCHC 33.6 g/dL (28.0-37.0); MCV 94.6 fL (80.0-100.0); MONOCYTES 10.9 %; NUCLEATED RBCS 0 /100WBC; PLATELET COUNT* 189 thou/uL (150-400); POLYS 48.9 %; RBC 4.18 mil/uL (4.20-5.00); RDW-CV 14.7 % (10.5-14.5); WBC 8.4 thou/uL (4.0-11.0)
[2019-08-30 13:21] LABS: CALCIUM 8.4 mg/dL (8.5-10.1); CREATININE 0.7 mg/dL (0.6-1.3); POTASSIUM 4.6 mmol/L (3.5-5.1)
[2019-08-30 13:36] LABS: ALBUMIN 3.3 g/dL (3.4-5.0); TOTAL BILIRUBIN 0.3 mg/dL (<0.1-1.0)
[2019-08-30 13:50] LABS: URINE BILIRUBIN NEGATIVE (Negative); URINE BLOOD 1+ (Negative); URINE CLARITY CLEAR; URINE COLOR STRAW; URINE GLUCOSE-RANDOM NEGATIVE (Negative); URINE KETONES NEGATIVE (Negative); URINE LEUKOCYTES-REFLEX NEGATIVE (Negative); URINE NITRITE-REFLEX NEGATIVE (Negative); URINE PROTEIN NEGATIVE (Negative); URINE SPECIFIC GRAVITY <= 1.005 (1.005-1.030); URINE UROBILINOGEN 0.2 E.U./dl (0.2-1.0)
[2019-08-30 14:01] LABS: SQUAMOUS 0-3 Few /LPF (0-3)
[2019-08-30 14:02] LABS: URINE RBC 0-2 Rare /HPF (0-2); URINE WBC-REFLEX None Seen /HPF (0-5)
[2019-08-30 14:03] LABS: BACTERIA-REFLEX None Seen /HPF (None Seen); CASTS None Seen /LPF (None Seen); CRYSTALS None Seen /LPF (None Seen); MUCUS None Seen strn/LPF (None Seen)
[2019-08-30 14:04] LABS: INFLUENZA A ANTIGEN Negative (Negative); INFLUENZA B ANTIGEN Negative (Negative)
[2019-08-30] MEDS ORDERED: AMOXICILLIN500 M1 PO (14:20)
[2019-08-30] MEDS ORDERED: TAMIFLU75 MG PO (14:20)
[2019-08-30 14:40] VITALS: BP 153/81
--- NOTE | 2019-09-01 14:12 | EKG ---
[place] [address] ELECTROCARDIOGRAM REPORT Name: MARVIN DARDEN Room: [facility]#: [id number] Admission: 08/30/19 Attend Phys: Discharge: 08/30/19 Date of : 32 Report #: [id number] THIS REPORT FOR: //name// [facility] ED Test Date: 2019-08-30 Test Time: 12:41:41 Pat Name: MARVIN DARDEN Department: Room: Gender: F Ophthalmologist: : 1930 Requested By: Rufus Sexton Order Number: [id number] MD: Adan Vela Measurements Intervals [place] Rate: 89 P: 44 DE: 187 QRS: -45 QRSD: 103 T: 57 QT: 396 QTc: 482 Interpretive Statements Sinus rhythm Left anterior fascicular block Left ventricular hypertrophy Compared to ECG 02/06/2019 11:28:53 No significant changes Electronically Signed On 09-01-2019 14:11:58 [employer] by Adan Vela [email or web address] <ELECTRONICALLY SIGNED> By: Adan Vela MD, [facility] 09/01/19 1411 1241 1241 Adan Vela MD, FACC /EPI
== END 2019-08-30 14:41 | disposition home or self-care (01) ==
LOC: M.ERS 12:16
PROVIDERS: Emergency Medicine
DX: J45.909 Unspecified asthma, uncomplicated (principal); I10 Essential (primary) hypertension; E03.9 Hypothyroidism, unspecified; K21.9 Gastro-esophageal reflux disease without esophagitis; E78.00 Pure hypercholesterolemia, unspecified; Z98.890 Other specified postprocedural states

== ENCOUNTER → 2019-09-16 | Outpatient (CLI) | payer OTHER, MEDICAID ==
[~2019-09-16] MED LIST changes: +ADVAIR 100-501 EACH INH; +AMOXICILLIN500 M1 PO; +ASA81BEC PO; +AZITHROMYCIN500 MG PO; +BENADRYL25 MG; +CIPRO500 M1 PO; +COLACE 100 MG100 MG PO; +KLOR-CON M2020 MEQ PO; +LEVO-T100 MCG PO; +LISINOPRIL2.5 MG PO; +LYRICA25 MG PO; +MESALAMINE E0.375 GM PO; +MUCINEX600 MG; +NORCO 5-325 TA1 EAC1 PO; +PAIN RELIEF325 MG PO; +RAYOS5 MG PO; +TAMIFLU75 MG PO
--- NOTE | ~2019-09-16 | PAINCON ---
[address] [address] PAIN MANAGEMENT CONSULTATION Name: MARVIN DARDEN Room: [facility].#: [id number] Admission: 09/16/19 Attend Phys: Brooks Mariscal MD Discharge: Date of : 32 Report #: [id number] THIS REPORT FOR: //name// cc: Florinda Pruitt Anna S. DO THIS REPORT FOR: //name// CC: Florinda Harrell DATE OF SERVICE: 09/16/2019 PRIMARY CARE PHYSICIAN: Florinda Pruitt DO CHIEF COMPLAINT: Still having pain in the back. HISTORY OF PRESENT ILLNESS: The patient is an 89-year-old female who has been followed in the pain clinic. As you recall, she has had shingles in the past. Since this time, she has suffered from postherpetic neuralgia. This involves her chest area and her arms. She finds that her medications are helpful. She rates it as a 3/10. She still has pain, which is problematic. She notes that use of the hydrocodone medication benefits her. She feels that the Lyrica medication continues to be beneficial as well. She is not having any problems with her mental capacity. She has returned today with the hopes of renewing her medications. She would like to continue with the Lyrica and continue with the hydrocodone. This discomfort is in the area of her right breast and under her arm. ALLERGIES: No known drug allergies. CURRENT MEDICATIONS: Albuterol 2.5 mg q.i.d., Norvasc 10 mg t.i.d., amlodipine 5 mg, risedronate 150 mg monthly, gabapentin, Lyrica 50 mg t.i.d., hydrocodone 5/325 one p.o. q.4-6 hours, meclizine 25 mg q.i.d., Colace, trazodone 150 mg at bedtime, aspirin 81 mg, lisinopril 40 mg, Caltrate 600 mg, Lialda 12.5 mg, levothyroxine 100 mcg, Lipitor 40 mg, ProAir 2 puffs daily, Advair Diskus 1 puff b.i.d., and omeprazole 40 mg. PAIN CLINIC ASSESSMENT/PQRS: 1. The patient has arthritis involving her knees and has had knee replacements. She is not being treated for rheumatoid arthritis. 2. Height 4 feet 9 inches, weight 150 pounds, BMI is 32.7. 3. Vital signs: Blood pressure 131/68, heart rate 82, respiratory rate 16, room air saturation 96%, temperature 98.2. [place] [address] PAIN MANAGEMENT CONSULTATION Name: MARVIN DARDEN Room: [facility]#: [id number] Admission: 09/16/19 Attend Phys: Brooks Mariscal MD Discharge: Date of : 32 Report #: [id number] 4. Pain intensity 10/20. 5. Fall history: The patient has not fallen in the last 3 months. 6. Blood thinner. The patient is not on a blood thinning medication. 7. Hypertension. The patient is being treated for hypertension. 8. Opioids greater than 6 weeks. [facility]. 9. Risk assessment tool, low for opioid use. 10. Functional assessment tool /. 11. Recreational drug use: The patient denies. 12. Alcohol: The patient denies. 13. Tobacco: The patient denies. PHYSICAL EXAMINATION: GENERAL: The patient is a well-developed, well-nourished, alert female who appears her stated age of 89 years. She is quite aware of her surroundings. NECK: Without adenopathy or JVD. She is wearing glasses. MUSCULOSKELETAL: Without significant scoliosis, kyphosis or lordosis. The patient has pain in her right breast area with pain that radiates down underneath the arm. The patient is walking with a cane. ABDOMEN: Nontender. Bowel sounds present. EXTREMITIES: Upper extremity muscle strength judged to be 4+/5 for the major muscle groups in the upper extremity. She has pain and discomfort in the area of the right armpit. Lower extremity muscle strength judged to be 5-/5 for the major muscle groups in the lower extremity. The patient is without significant scoliosis, kyphosis or lordosis. Pain and discomfort is in the T7/T6 area on the right side. IMPRESSION: 1. History of shingles approximately 3 years, status post herpetic neuralgia involving T6-T7 dermatomal distribution. 2. Gastroesophageal reflux. 3. Dysequilibrium 4. Chronic ulcerative colitis. 5. Postherpetic neuralgia. 6. Insomnia. 7. Generalized anxiety disorder. 8. Osteoporosis. 9. Hypertension. 10. Osteopenia. 11. Hypothyroidism. 12. Eczema. 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 14. Hyperlipidemia. 15. Degenerative joint disease involving the knees. 16. Rosacea. [address] [address] PAIN MANAGEMENT CONSULTATION Name: MARVIN DARDEN Room: [facility]#: [id number] Admission: 09/16/19 Attend Phys: Brooks Mariscal MD Discharge: Date of : 32 Report #: [id number] RECOMMENDATIONS: We discussed treatment options with the patient. At this juncture, she feels her medications are helpful. We will continue with her medications as she has been taking them. She feels that the Lyrica is helpful. She feels that the hydrocodone medications can be helpful. She sometimes notes a return of her pain relatively quickly after taking the hydrocodone. She also finds that the pain can return after use of Lyrica. Overall, she feels that things are going reasonably well. She has taken her medications as prescribed and keeps it in a guarded area. She will call us if she has any concerns. A script for her medications for the next 3 months has been rewritten. She will continue with hydrocodone 5 mg 1 p.o. t.i.d. or q.i.d. p.r.n. to help control the pain. The patient will also continue with the Lyrica 50 mg 1 p.o. t.i.d. Risks and benefits of long-term opioid use have been discussed. The patient is aware that certain people can become addicted as a result of using these medications. She does not have an addiction. She would like to continue with the medications. She will call us if she has any concerns. We would like to thank you for letting us participate in her care. We hope she continues to improve. By: 1409 2221N. Tucker Mariscal MD /usman
== END ==
LOC: M.PC 10:39
DX: B02.29 Other postherpetic nervous system involvement (principal); K21.9 Gastro-esophageal reflux disease without esophagitis; R42 Dizziness and giddiness; K51.90 Ulcerative colitis, unspecified, without complications; G47.00 Insomnia, unspecified; F41.1 Generalized anxiety disorder; M81.0 Age-related osteoporosis without current pathological fracture; I10 Essential (primary) hypertension; E03.9 Hypothyroidism, unspecified; L30.9 Dermatitis, unspecified; E78.5 Hyperlipidemia, unspecified; M17.0 Bilateral primary osteoarthritis of knee; L71.9 Rosacea, unspecified

== ENCOUNTER 2019-10-28 11:04 | Emergency (ER) | payer OTHER, MEDICAID ==
[~2019-10-28] VITALS: Ht 142.2 cm; Wt 71.2 kg
[2019-10-28 11:57] LABS: ABSOLUTE BASOPHILS 0.1 thou/uL (0.0-0.2); ABSOLUTE EOSINOPHILS 0.1 thou/uL (0.0-0.7); ABSOLUTE LYMPHOCYTES 2.3 thou/uL (0.8-5.3); ABSOLUTE MONOCYTES 0.7 thou/uL (0.0-1.2); ABSOLUTE NEUTROPHILS 3.9 thou/uL (1.6-8.1); BASOPHILS 0.9 %; EOSINOPHILS 1.9 %; HEMATOCRIT 38.3 % (37.0-47.0); HEMOGLOBIN 12.8 gm/dL (12.0-15.0); LYMPHOCYTES 31.7 %; MCH 31.1 pg (26.0-34.0); MCHC 33.5 g/dL (28.0-37.0); MONOCYTES 10.2 %; MPV 8.4 fl. (7.2-11.1); NUCLEATED RBCS 0 /100WBC; PLATELET COUNT* 211 thou/uL (150-400); POLYS 55.3 %; RBC 4.11 mil/uL (4.20-5.00); WBC 7.1 thou/uL (4.0-11.0)
[2019-10-28 12:30] LABS: CALCIUM 8.7 mg/dL (8.5-10.1); CREATININE 0.6 mg/dL (0.6-1.3); POTASSIUM 3.9 mmol/L (3.5-5.1)
[2019-10-28 12:39] LABS: URINE BILIRUBIN NEGATIVE (Negative); URINE BLOOD TRACE (Negative); URINE CLARITY CLEAR; URINE COLOR YELLOW; URINE GLUCOSE-RANDOM NEGATIVE (Negative); URINE KETONES NEGATIVE (Negative); URINE LEUKOCYTES-REFLEX NEGATIVE (Negative); URINE NITRITE-REFLEX NEGATIVE (Negative); URINE PROTEIN NEGATIVE (Negative); URINE UROBILINOGEN 0.2 E.U./dl (0.2-1.0)
[2019-10-28 12:41] LABS: ALBUMIN 3.5 g/dL (3.4-5.0); TOTAL BILIRUBIN 0.3 mg/dL (<0.1-1.0); TOTAL PROTEIN 7.2 g/dL (6.4-8.2)
[2019-10-28] MEDS ORDERED: MECLIZINE HCL12.5 MG PO (15:38)
--- NOTE | 2019-10-28 15:38 | EKG ---
[place] [address] ELECTROCARDIOGRAM REPORT Name: MARVIN DARDEN Room: [facility]#: [id number] Admission: 10/28/19 Attend Phys: Discharge: Date of : 34 Date of Service: 10/28/19 1237 Report #: [id number] THIS REPORT FOR: //name// [facility] ED Test Date: 2019-10-28 Test Time: 12:37:07 Pat Name: MARVIN DARDEN Department: Room: Gender: F Venue Manager: AUREA : 1930 Requested By: Rufus Sexton Order Number: [id number] MD: Adan Vela Measurements Intervals [place] Rate: 57 P: 34 DE: 190 QRS: -41 QRSD: 107 T: 13 QT: 456 QTc: 444 Interpretive Statements Sinus rhythm Left anterior fascicular block Abnormal R-wave progression, late transition Left ventricular hypertrophy Compared to ECG 08/30/2019 12:41:41 No significant changes Electronically Signed On 10-28-2019 15:37:35 CDT by Adan Vela [email or web address] <ELECTRONICALLY SIGNED> By: Adan Vela MD, [facility] 10/28/19 1537 1237 1237 Adan Vela MD, [facility] /EPI
[2019-10-28 15:52] VITALS: BP 185/64
== END 2019-10-28 15:58 | disposition home or self-care (01) ==
LOC: M.ERS 11:04
PROVIDERS: Emergency Medicine
DX: R42 Dizziness and giddiness (principal); I10 Essential (primary) hypertension; J45.909 Unspecified asthma, uncomplicated; K21.9 Gastro-esophageal reflux disease without esophagitis; E03.9 Hypothyroidism, unspecified; E78.00 Pure hypercholesterolemia, unspecified

== ENCOUNTER → 2020-01-08 | Outpatient (CLI) | payer OTHER, MEDICAID ==
[~2020-01-08] MED LIST changes: +LYRICA 75 MG CA75 MG PO; +MECLIZINE HCL12.5 MG PO
--- NOTE | ~2020-01-08 | PAINCON ---
[address] [address] PAIN MANAGEMENT CONSULTATION Name: MARVIN DARDEN Room: [facility]#: [id number] Admission: 01/08/20 Attend Phys: Brooks Mariscal MD Discharge: Date of : 32 Report #: [id number] THIS REPORT FOR: //name// cc: Florinda Pruitt Anna S. DO ~ THIS REPORT FOR: //name// CC: Florinda Mariscal DATE OF SERVICE: 01/08/2020 PRIMARY CARE PHYSICIAN: Florinda Pruitt DO CHIEF COMPLAINT: "Here for medications. The shingles are still bad." HISTORY: The patient is an 89-year-old female who has been followed in the pain clinic. As you recall, she suffers from postherpetic neuralgia. This continues to be problematic. It involves her right side. It radiates from the right side down to her right breast area. She rates it as 8/10 at times. Now, it is a 4/10. She describes it as a hit on the right side, which feels like a lightning. She has some numbness on the right breast area as well. She remains active by walking. She finds that the pain generally awakes her nightly. She rates her pain as a 2/10. She sometimes forgets to take the Lyrica 3 times daily. ALLERGIES: No known drug allergies. CURRENT MEDICATIONS: Albuterol 2.5 mg q.i.d., Norvasc 10 mg t.i.d., amlodipine 5 mg, risedronate 150 mg monthly, gabapentin, Lyrica 50 mg t.i.d., hydrocodone 5/325 one p.o. every 4-6 hours p.r.n., meclizine 25 mg q.i.d., Colace, trazodone 150 mg at bedtime, aspirin 81 mg, lisinopril 40 mg, Caltrate 600 mg, Lialda 12.5 ____, levothyroxine 100 mcg, Lipitor 40 mg, ProAir 2 puffs daily, Advair Diskus 1 puff b.i.d., omeprazole 40 mg. PAIN CLINIC ASSESSMENT AND PQRS: 1. The patient has some osteoarthritic changes involving her knee, which has been replaced. She is not being treated for rheumatoid arthritis. 2. Height 4 feet 9 inches, weight 150 pounds, BMI is 31. 3. Vital signs: Blood pressure 145/71, heart rate 81, respiratory rate 16, room air 98%, temperature 98. PHYSICAL EXAMINATION: GENERAL: The patient is a well-developed, well-nourished female. She is alert and oriented x 3. She is quite aware of her surroundings. NECK: Without adenopathy or JVD[place] [address] PAIN MANAGEMENT CONSULTATION Name: MARVIN DARDEN Room: [facility]#: [id number] Admission: 01/08/20 Attend Phys: Brooks Mariscal MD Discharge: Date of : 32 Report #: [id number] MUSCULOSKELETAL: Without significant scoliosis, kyphosis or lordosis. The patient has some pain in the right breast area. It radiates under her arm. She does walk with use of a cane. ABDOMEN: Nontender. Bowel sounds present. EXTREMITIES: Upper extremity muscle strength judged to be 4+/5 for the major muscle groups in the upper extremity. The patient has some discomfort on the right armpit. Lower extremity muscle strength judged to be 5-/5 for the major muscle groups in the lower extremity. The patient without significant scoliosis, kyphosis or lordosis. The patient has some discomfort in the T7-T6 area on the right side. IMPRESSION: 1. History of shingles approximately 3 years ago, status post herpes neuralgia involving the T6-T7 dermatomal distribution. 2. Gastroesophageal reflux. 3. Dysequilibrium. 4. Chronic ulcerative colitis. 5. Postherpetic neuralgia. 6. Insomnia. 7. Generalized anxiety disorder. 8. Osteoporosis. 9. Hypertension. 10. Osteopenia. 11. Hypothyroidism. 12. Eczema. 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 14. Hyperlipidemia. 15. Degenerative joint disease involving the knees. 16. Rosacea. RECOMMENDATIONS: We discussed treatment options with the patient. At this juncture, we will continue with her medications. She feels overall that these medications are helpful. She sometimes forgets to take the Lyrica 50 mg t.i.d. We will have the patient take 75 mg tablets 1 p.o. b.i.d. This will give her the same amount of medications. Hopefully, it will be less of a problem remembering to take the third pill. She will continue with her hydrocodone 5/325 one p.o. p.r.n. She will call us if she has any problems. We would like to thank you for letting us participate in her care. She is not having any problems with her sensorium. It remains clear. She is thinking well without disturbance from her medications. By: [id number]. Tucker Mariscal MD /ABDIRIZAK
== END ==
LOC: M.PC 04:23
DX: M79.2 Neuralgia and neuritis, unspecified (principal); K21.9 Gastro-esophageal reflux disease without esophagitis; R42 Dizziness and giddiness; K51.90 Ulcerative colitis, unspecified, without complications; G47.00 Insomnia, unspecified; M81.0 Age-related osteoporosis without current pathological fracture; I10 Essential (primary) hypertension; M85.88 Other specified disorders of bone density and structure, other site; E03.9 Hypothyroidism, unspecified; L30.9 Dermatitis, unspecified; E78.5 Hyperlipidemia, unspecified; M17.0 Bilateral primary osteoarthritis of knee; L71.9 Rosacea, unspecified; F41.9 Anxiety disorder, unspecified; F11.20 Opioid dependence, uncomplicated; Z85.89 Personal history of malignant neoplasm of other organs and systems; Z79.899 Other long term (current) drug therapy

== ENCOUNTER → 2020-03-04 | Outpatient (CLI) | payer OTHER, MEDICAID ==
--- NOTE | 2020-03-15 00:07 | PAINCON ---
[address] [address] PAIN MANAGEMENT CONSULTATION Name: MARVIN DARDEN Room: [facility].#: [id number] Admission: 03/04/20 Attend Phys: Brooks Mariscal MD Discharge: Date of : 32 Report #: [id number] THIS REPORT FOR: //name// cc: Florinda Pruitt Anna S. DO ~ THIS REPORT FOR: //name// CC: Florinda Mariscal DATE OF SERVICE: 03/04/2020 CHIEF COMPLAINT: Shingles pain is still in the right breast area. HISTORY: The patient is an 89-year-old female who has been followed in the pain clinic because of chronic pain. She continues to be plagued by the postherpetic neuralgia. This radiates in her right breast and around into her back. She feels that her medications are helpful. The Lyrica continues to help, but notes that the pain can restart as the medication starts to wear out. She has some dizziness in the morning and throughout the day. She is taking a medication for this. She uses meclizine. She has not fallen. Overall, she feels that her medications are working reasonably well. She rates her pain as a 3/10 at this juncture. She would like to continue with the medications. ALLERGIES: No known drug allergies. CURRENT MEDICATIONS: Albuterol 2.5 mg q.i.d., Norvasc 10 mg t.i.d., amlodipine 5 mg, risedronate 150 mg monthly, gabapentin, Lyrica 50 mg t.i.d., hydrocodone 5/325 one p.o. every 4-6 hours p.r.n., meclizine 25 mg q.i.d., Colace, trazodone 150 mg at bedtime, aspirin 81 mg, lisinopril 40 mg, Caltrate 600 mg, Lialda 12.5 mg, levothyroxine 100 mcg, Lipitor 40 mg, ProAir 2 puffs daily, Advair Diskus 1 puff b.i.d., and omeprazole 40 mg. PAIN CLINIC ASSESSMENT AND PQRS: 1. The patient does have some osteoarthritic changes involving her knees, which have been replaced. She is not being treated for rheumatoid arthritis. 2. Height 4 feet 10 inches, weight 148 pounds, BMI is 31. 3. Vital signs: Blood pressure 134/67, heart rate 81, respiratory rate 18, room air saturation 96%, temperature 98.5. 4. Pain intensity 10. 5. Fall history: The patient has not fallen. She does note some weakness at times during the day when she is up and active. 6. Blood thinner. The patient is not on a blood thinning medication. 7. Hypertension. The patient is being treated for hypertension. 8. Opioids greater than 6 weeks. The patient received medication from the pain [place] [address] PAIN MANAGEMENT CONSULTATION Name: MARVIN DARDEN Room: [facility] Teresa#: [id number] Admission: 03/04/20 Attend Phys: Brooks Mariscal MD Discharge: Date of : 32 Report #: [id number] 9. Risk assessment tool, low for opioid use. 10. Functional assessment tool reviewed. 11. Recreational drug use. The patient denies. 12. Tobacco: The patient denies. 13. Alcohol. The patient denies frequent use of alcoholic beverages. PHYSICAL EXAMINATION: GENERAL: The patient is a well-developed, well-nourished female. Appears her stated age. She is alert and oriented x 3. Her affect is appropriate. Speech is fluent. HEENT: Normocephalic, atraumatic. Extraocular eye muscles intact. Sclerae nonicteric. Mucous membranes are moist. The patient is wearing a mask. NECK: Without adenopathy or JVD. HEART: Regular. ABDOMEN: Protuberant. Bowel sounds present. MUSCULOSKELETAL: The patient without significant scoliosis, kyphosis or lordosis. The patient has pain and discomfort in the right thoracic area underneath the right breast. The patient has pain and discomfort in the right armpit area. Upper extremity muscle strength judged to be 5-/5 for the major muscle groups. Lower extremity muscle strength judged to be 5-/5. The patient has discomfort in the T7-T6 area where the postherpetic neuralgia is problematic. IMPRESSION: 1. History of shingles approximately 3 years ago, status post herpes zoster outbreak in the T7-T6 dermatomal distribution. 2. Gastroesophageal reflux. 3. Dysequilibrium. 4. Chronic ulcerative colitis. 5. Insomnia. 6. Generalized anxiety disorder. 7. Osteoporosis. 8. Hypertension. 9. Osteopenia. 10. Hypothyroidism. 11. Eczema. 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 13. Hyperlipidemia. 14. Degenerative joint disease involving the knees. 15. Rosacea. RECOMMENDATIONS: We discussed treatment options with the patient. At this juncture, we will continue with her medications. She feels that the medications are helpful. She would like to continue their use. She does have sometimes during the day when she feels somewhat dizzy. We have had a discussion in that regard. We would recommend that the patient try a bicycle helmet. If she feels [facility] [address] [place] [address] PAIN MANAGEMENT CONSULTATION Name: MARVIN DARDEN Room: [facility]#: [id number] Admission: 03/04/20 Attend Phys: Brooks Mariscal MD Discharge: Date of : 32 Report #: [id number] particularly unstable, she should wear the bicycle helmet. She is keeping in her bathroom should she fall. We explained that falls can be quite detrimental in the bathroom because of the hard surfaces. She has given some thought and will consider that option. A script for her medications of Lyrica 75 mg 1 p.o. b.i.d. has been provided. The patient will also continue with hydrocodone 5 mg 1 p.o. q.i.d. The patient will call us if she has any concerns. We would like to thank you for letting us participate in her care. We hope she continues to improve. <ELECTRONICALLY SIGNED> By: Brooks Mariscal MD 03/15/20 0007 1321 [id number]. Tucker Mariscal MD /nt
== END ==
LOC: M.PC 04:26
PROVIDERS: ATTEND Anesthesiology Pain Medicine
DX: G89.29 Other chronic pain (principal); I10 Essential (primary) hypertension; K21.9 Gastro-esophageal reflux disease without esophagitis; R42 Dizziness and giddiness; K51.90 Ulcerative colitis, unspecified, without complications; F41.9 Anxiety disorder, unspecified; M81.0 Age-related osteoporosis without current pathological fracture; E03.9 Hypothyroidism, unspecified; E78.5 Hyperlipidemia, unspecified; M17.0 Bilateral primary osteoarthritis of knee; L71.9 Rosacea, unspecified; Z95.828 Presence of other vascular implants and grafts; Z98.890 Other specified postprocedural states; Z68.31 Body mass index [BMI] 31.0-31.9, adult; Z79.899 Other long term (current) drug therapy

== ENCOUNTER → 2020-04-27 | Outpatient (CLI) | payer OTHER, MEDICAID ==
--- NOTE | 2020-05-06 08:38 | PAINCON ---
[address] [address] PAIN MANAGEMENT CONSULTATION Name: MARVIN DARDEN Room: [facility].#: [id number] Admission: 04/27/20 Attend Phys: Brooks Mariscal MD Discharge: Date of : 32 Report #: [id number] THIS REPORT FOR: //name// cc: Florinda Pruitt Anna S. DO THIS REPORT FOR: //name// CC: Florinda Marisacl DATE OF SERVICE: 04/27/2020 CHIEF COMPLAINT: Shingles and arm pain. HISTORY: The patient is an 89-year-old female who has been followed in the pain clinic because of chronic pain. She has had shingles. It involves her right breast area. Pain continues to be problematic. The patient notes that the pain waxes and wanes. She has been using Lyrica. She notes that this medication does not seem to last as long as she would like. Sometimes she is awakened at around 2 a.m. She has pain today as a 0. She has not had any complications from her medications. Overall, she feels that things are going reasonably well except for the pain medication irvin off. ALLERGIES: No known drug allergies. CURRENT MEDICATIONS: Albuterol 2.5 mg q.i.d., Norvasc 10 mg t.i.d., amlodipine 5 mg, risedronate 150 mg monthly, gabapentin, Lyrica 75 mg b.i.d. and hydrocodone 5/325 one p.o. every 4-6 hours, meclizine 25 mg q.i.d., Colace, trazodone 150 mg at bedtime, aspirin 81 mg, lisinopril 40 mg, Caltrate 600 mg, carvedilol 12.5 mg, levothyroxine 100 mcg, Lipitor 40 mg, ProAir 2 puffs daily, Advair Diskus 1 puff b.i.d., and omeprazole 40 mg. PAIN CLINIC ASSESSMENT AND PQRS: 1. 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 She has had a knee replacement. She is not being treated for rheumatoid arthritis. 2. Height 4 feet 9 inches, weight 150 pounds, BMI is 32. 3. Vital Signs: Blood pressure 123/65, heart rate 84, respiratory rate 16, room air saturation 97%, temperature 97.3. 4. Pain intensity 0/10 at this juncture. 5. Fall history: The patient has not fallen in the last 3 months. 6. Blood thinner. The patient is not on a blood thinning medication. 7. Hypertension. The patient is being treated for hypertension. 8. Opioids greater than 6 weeks. The patient receives medication from her primary. 9. Risk assessment tool, low for opioid use. 10. Functional [place] [address] PAIN MANAGEMENT CONSULTATION Name: MARVIN DARDEN Room: [facility]#: [id number] Admission: 04/27/20 Attend Phys: Brooks Mariscal MD Discharge: Date of : 32 Report #: [id number] 11. Recreational drug use. The patient denies. 12. Tobacco: The patient denies. 13. Alcohol. The patient denies frequent use of alcoholic beverages. PHYSICAL EXAMINATION: GENERAL: The patient is a well-developed, well-nourished female. She appears her stated age. She is alert and oriented x 3. Her affect is appropriate. Speech is fluent. HEENT: Normocephalic, atraumatic. Extraocular eye muscles intact. Sclerae nonicteric. The patient is wearing glasses. She has a mask in place. NECK: Without adenopathy or JVD. HEART: Regular rate. LUNGS: Clear. ABDOMEN: Nontender. The patient has some pain and discomfort in the area of the right breast area where the shingles outbreak occurred. MUSCULOSKELETAL: The patient without significant scoliosis, kyphosis or lordosis. Upper extremity muscle strength judged to be 5-/5 for the major muscle groups in the upper extremity. Lower extremity muscle strength 5-/5. The patient has area of discomfort at approximately T7 through T6 in the area of her postherpetic neuralgic outbreak. IMPRESSION: 1. History of shingles approximately 3 years ago, status post herpes zoster outbreak at the T7-T6 dermatomal . 2. Gastroesophageal reflux. 3. Dysequilibrium 4. Chronic ulcerative colitis. 5. Insomnia. 6. Generalized anxiety disorder. 7. Osteoporosis. 8. Hypertension. 9. Osteopenia. 10. Hypothyroidism. 11. Eczema. 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 13. Hyperlipidemia. 14. Degenerative joint disease involving the knees. 15. Rosacea. RECOMMENDATIONS: We discussed treatment options with the patient. Risks and benefits of medications were discussed. At this juncture, the patient feels that her medications continue to be less effective. We will increase her medication from Lyrica 75 mg b.i.d. to Lyrica t.i.d. Hopefully, she will notice an improvement in her pain control. We will also have the patient continue with the meclizine for dizziness. She has been given a script for hydrocodone 5/325 one p.o. q.i.d. [facility] [address] [place] [address] PAIN MANAGEMENT CONSULTATION Name: MARVIN DARDEN Room: [facility]#: [id number] Admission: 04/27/20 Attend Phys: Brooks Mariscal MD Discharge: Date of : 32 Report #: [id number] We would like to thank you for letting us participate in her care. She is aware that opioid medications may become less effective as time goes on. She will call us if she has any problems with her balance with the increase in the Lyrica. <ELECTRONICALLY SIGNED> By: Brooks Mariscal MD 05/06/20 0838 1150 [id number] Mariscal MD /[facility]
== END ==
LOC: M.PC 10:49
PROVIDERS: ATTEND Anesthesiology Pain Medicine
DX: B02.9 Zoster without complications (principal); K21.9 Gastro-esophageal reflux disease without esophagitis; R42 Dizziness and giddiness; K51.90 Ulcerative colitis, unspecified, without complications; G47.00 Insomnia, unspecified; F41.9 Anxiety disorder, unspecified; M81.0 Age-related osteoporosis without current pathological fracture; I10 Essential (primary) hypertension; M85.88 Other specified disorders of bone density and structure, other site; E03.9 Hypothyroidism, unspecified; L30.9 Dermatitis, unspecified; E78.5 Hyperlipidemia, unspecified; M17.0 Bilateral primary osteoarthritis of knee; L71.9 Rosacea, unspecified; F11.20 Opioid dependence, uncomplicated; Z79.899 Other long term (current) drug therapy; Z86.008 Personal history of in-situ neoplasm of other site

== ENCOUNTER → 2020-06-22 | Outpatient (CLI) | payer OTHER, MEDICAID ==
--- NOTE | 2020-07-15 14:42 | PAINCON ---
[address] [address] PAIN MANAGEMENT CONSULTATION Name: MARVIN DARDEN Room: [facility]#: [id number] Admission: 06/22/20 Attend Phys: Brooks Mariscal MD Discharge: Date of : 32 Report #: [id number] THIS REPORT FOR: //name// cc: Florinda Pruitt Anna S. DO ~ CC: Florinda Mariscal DATE OF SERVICE: 06/22/2020 CHIEF COMPLAINT: Shingles in the armpit. HISTORY: The patient is an 89-year-old female who has been followed in the pain clinic because of chronic pain. She underwent shingles outbreak. This was a number of years ago. Since that time, she has had pain and discomfort in the right breast and around to the back area. She notes that there is a burning sensation, shooting sensation and sometimes quite uncomfortable for her to wear her clothing in the right breast area. She feels her pain is about 40-50% improved with her current medical regimen using hydrocodone and Lyrica. She has returned today. Pain is reasonably well controlled. She rates it as a 1-0 at this point. She would like to have her medications renewed. She does not have any complications from their use. She is able to think clearly. She has not had any falls. ALLERGIES: No known drug allergies. CURRENT MEDICATIONS: Albuterol 2.5 mg q.i.d., Norvasc 10 mg t.i.d., amlodipine 5 mg, risedronate 150 mg monthly, gabapentin, Lyrica 75 mg b.i.d., hydrocodone 5/325 one p.o. every 4-6 hours, meclizine 25 mg q.i.d., Colace, trazodone 150 mg at bedtime, aspirin 81 mg, lisinopril 40 mg, Caltrate 600 mg, carvedilol 12.5 mg, levothyroxine 100 mcg, Lipitor 40 mg, ProAir 2 puffs daily, Advair Diskus 1 puff b.i.d., and omeprazole 40 mg. PAIN CLINIC ASSESSMENT AND PQRS: 1. The patient has some osteoarthritic changes involving her knee. She has had a knee replacement. She is not being treated for rheumatoid arthritis. 2. Height 4 feet 10 9 inches, weight 150 pounds, BMI is 33. 3. Vital signs: Blood pressure 150/68, heart rate 80, respiratory rate 16, room air saturation 97%, temperature 97.9. 4. Pain intensity is 0/10. 5. Fall history: The patient has not fallen in the last 3 months. 6. Blood thinner. The patient is not on a blood thinning medication. 7. Hypertension. The patient is being treated for hypertension. 8. Opioids greater than 6 weeks. The patient receives medication from her primary. 9. Risk assessment tool, [place] [address] PAIN MANAGEMENT CONSULTATION Name: MARVIN DARDEN Room: [facility] Teresa#: [id number] Admission: 06/22/20 Attend Phys: Brooks Mariscal MD Discharge: Date of : 32 Report #: [id number] 10. Functional assessment tool reviewed. 11. Recreational drug use: The patient denied. 12. Tobacco: The patient denies. 13. Alcohol. The patient denies frequent use of alcoholic beverages. PHYSICAL EXAMINATION: GENERAL: The patient is a well-developed, well-nourished female. Appears her stated age. She is alert and oriented x 3. Her affect is appropriate. Speech is fluent. HEENT: Normocephalic, atraumatic. Extraocular eye muscles intact. The patient is wearing glasses. Has a mask in place. NECK: Without adenopathy or JVD. HEART: Regular rate. LUNGS: Clear. BREASTS: The patient complains of pain in the right breast area and areas around her back when the pain is problematic. MUSCULOSKELETAL: Without significant scoliosis, kyphosis or lordosis. Upper extremity muscle strength judged to be 5-/5 for the major muscle groups in the upper extremity. Lower extremity muscle strength 5-/5 for the major muscle groups in the lower extremity. Has discomfort in the T7 through T6 area from post-herpetic neuralgia. IMPRESSION: 1. History of shingles with postherpetic neuralgia approximately 3 years ago, status post herpes zoster outbreak. 2. Gastroesophageal reflux. 3. Dysequilibrium. 4. Chronic ulcerative colitis. 5. Insomnia. 6. Generalized anxiety disorder. 7. Osteoporosis. 8. Hypertension. 9. Osteopenia. 10. Hypothyroidism. 11. Eczema. 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 13. Hyperlipidemia. 14. Degenerative joint disease involving the knees. 15. Rosacea. RECOMMENDATIONS: We discussed treatment options with the patient. At this juncture, she feels her medications are working reasonably well. She is able to think clearly with the medications. Her pain is somewhat under control at this point. She rates it as between one and 0. Hopefully, she will continue to do well. A script for her medications of hydrocodone 5/325, total of 120 tablets per month has been issued for the next 2 months. She will also continue with [facility] [address] [place] [address] PAIN MANAGEMENT CONSULTATION Name: MARVIN DARDEN Room: [facility].#: [id number] Admission: 06/22/20 Attend Phys: Brooks Mariscal MD Discharge: Date of : 32 Report #: [id number] meclizine to help with her dizziness. She will continue with the pregabalin 75 mg 1 p.o. t.i.d. We would like to thank you for letting us participate in her care. She will call us if she has any concerns. She is aware that opioid medications can become less effective as time goes on. She is not complaining of any significant amount of constipation associated with these medications. <ELECTRONICALLY SIGNED> By: Brooks Mariscal MD 07/15/20 1442 1431 1841N. Tucker Mariscal MD /nt
== END ==
LOC: M.PC 11:00
PROVIDERS: ATTEND Anesthesiology Pain Medicine
DX: B02.9 Zoster without complications (principal)

== ENCOUNTER → 2020-08-17 | Outpatient (CLI) | payer OTHER, MEDICAID ==
[~2020-08-17] MED LIST changes: +ENTOCORT EC 3 MG3 MG PO; -LISINOPRIL2.5 MG PO; +LISINOPRIL5 MG PO
== END ==
LOC: M.PC 11:00
PROVIDERS: ATTEND Anesthesiology Pain Medicine
DX: B02.9 Zoster without complications (principal); K21.9 Gastro-esophageal reflux disease without esophagitis; F41.9 Anxiety disorder, unspecified; M81.0 Age-related osteoporosis without current pathological fracture; I10 Essential (primary) hypertension; E03.9 Hypothyroidism, unspecified; E78.5 Hyperlipidemia, unspecified; M17.0 Bilateral primary osteoarthritis of knee; L71.9 Rosacea, unspecified; L30.9 Dermatitis, unspecified; G47.00 Insomnia, unspecified; E87.8 Other disorders of electrolyte and fluid balance, not elsewhere classified; Z86.008 Personal history of in-situ neoplasm of other site

== ENCOUNTER 2020-09-03 11:52 | Inpatient (IN) | payer OTHER, MEDICAID ==
[~2020-09-03] VITALS: Ht 137.2 cm; Wt 73.0 kg
[2020-09-03 11:56] VITALS: BP 143/62
[2020-09-03 12:39] LABS: ABSOLUTE LYMPHOCYTES 1.5 thou/uL (0.8-5.3); ABSOLUTE MONOCYTES 0.9 thou/uL (0.0-1.2); ABSOLUTE NEUTROPHILS 13.8 thou/uL (1.6-8.1); BASOPHILS 0.3 %; EOSINOPHILS 0.2 %; HEMOGLOBIN 12.7 gm/dL (12.0-15.0); LYMPHOCYTES 9.2 %; MCH 31.4 pg (26.0-34.0); MCHC 33.5 g/dL (28.0-37.0); MCV 93.8 fL (80.0-100.0); MONOCYTES 5.8 %; NUCLEATED RBCS 0 /100WBC; PLATELET COUNT* 201 thou/uL (150-400); POLYS 84.5 %; RBC 4.05 mil/uL (4.20-5.00); RDW-CV 14.5 % (10.5-14.5); WBC 16.3 thou/uL (4.0-11.0)
[2020-09-03 12:42] LABS: CALCIUM 8.8 mg/dL (8.5-10.1); CREATININE 0.8 mg/dL (0.6-1.3); POTASSIUM 3.6 mmol/L (3.5-5.1)
[2020-09-03 12:43] LABS: PROTIME 10.3 Seconds (9.20-11.50)
[2020-09-03 12:51] LABS: URINE BILIRUBIN NEGATIVE (Negative); URINE BLOOD TRACE (Negative); URINE CLARITY CLEAR; URINE COLOR YELLOW; URINE GLUCOSE-RANDOM NEGATIVE (Negative); URINE KETONES NEGATIVE (Negative); URINE LEUKOCYTES-REFLEX 1+ (Negative); URINE PROTEIN NEGATIVE (Negative); URINE UROBILINOGEN 0.2 E.U./dl (0.2-1.0)
[2020-09-03 12:52] LABS: ALBUMIN 3.3 g/dL (3.4-5.0); TOTAL BILIRUBIN 0.5 mg/dL (<0.1-1.0); TOTAL PROTEIN 7.3 g/dL (6.4-8.2)
[2020-09-03 12:53] LABS: URINE NITRITE-REFLEX POSITIVE (Negative)
[2020-09-03 13:31] LABS: BACTERIA-REFLEX >30 Many /HPF (None Seen); CASTS None Seen /LPF (None Seen); CRYSTALS None Seen /LPF (None Seen); SQUAMOUS 0-3 Few /LPF (0-3); URINE RBC None Seen /HPF (0-2); URINE WBC-REFLEX >25 Many /HPF (0-5)
--- NOTE | 2020-09-03 14:43 | EKG ---
[place] [address] ELECTROCARDIOGRAM REPORT Name: MARVIN DARDEN Room: [place] [address] ADM [place] .R.#: [id number] Admission: 09/03/20 Attend Phys: Shankar Salazar Discharge: Date of : 32 Date of Service: 09/03/20 1205 Report #: [id number] THIS REPORT FOR: //name// [facility] ED Test Date: 2020-09-03 Test Time: 12:05:57 Pat Name: MARVIN DARDEN Department: Room: [facility] Gender: F Apprentice Carpenter: : 1930 Requested By: Ishan Chandler Order Number: [id number] MD: Adan Vela Measurements Intervals [place] Rate: 105 P: 46 NM: 162 QRS: -52 QRSD: 121 T: 26 QT: 377 QTc: 499 Interpretive Statements Sinus tachycardia Probable left atrial enlargement RBBB and LAFB Left ventricular hypertrophy Compared to ECG 10/28/2019 12:37:07 Right bundle-branch block now present ST (T wave) deviation now present Sinus rhythm no longer present Electronically Signed On 09-03-2020 14:43:01 IMPREGNATOR AND DRIER HELPER by Adan Vela [email or web address] <ELECTRONICALLY SIGNED> By: Adan Vela MD, [facility] 09/03/20 1443 1205 1205 Adan Vela MD, [facility] /EPI
[2020-09-03 19:33] VITALS: BP 145/63
[2020-09-03 20:00] VITALS: BP 157/57
[2020-09-04] VITALS: BP 130/56
[2020-09-04 04:51] VITALS: BP 129/62
[2020-09-04 04:54] LABS: HEMATOCRIT 33.6 % (37.0-47.0); HEMOGLOBIN 11.3 gm/dL (12.0-15.0); MCH 31.8 pg (26.0-34.0); MCHC 33.6 g/dL (28.0-37.0); MCV 94.6 fL (80.0-100.0); MPV 7.9 fl. (7.2-11.1); RBC 3.55 mil/uL (4.20-5.00); RDW-CV 14.5 % (10.5-14.5); WBC 16.1 thou/uL (4.0-11.0)
[2020-09-04 05:19] LABS: ALBUMIN 2.5 g/dL (3.4-5.0); CALCIUM 7.8 mg/dL (8.5-10.1); CREATININE 0.6 mg/dL (0.6-1.3); POTASSIUM 3.2 mmol/L (3.5-5.1); TOTAL BILIRUBIN 0.4 mg/dL (<0.1-1.0); TOTAL PROTEIN 5.9 g/dL (6.4-8.2)
--- NOTE | 2020-09-04 06:27 | NUR ---
ASSUMED PT'S CARE @ ABOUT 1999. PT ALERT AND ORIENTED X3. FORGETFUL. PT PLEASANT AND COOPERATIVE. HOME MEDS RECONCILED. PRN PAIN MEDS GIVEN THIS SHIFT. PT SLEPT WELL THIS SHIFT. DID REQUEST TURNS AND WAS TURNED Q2. FALL PRECAUTION IN PLACE. CALL LIGHT WITHIN REACH. WILL CONTINUE TO MONITOR.
[2020-09-04 10:00] VITALS: BP 146/67
[2020-09-04 12:00] VITALS: BP 99/39
--- NOTE | 2020-09-04 15:55 | NUR ---
PT AO X4 LYING IN BED AT TIME OF ASSESSMENT VSS, COMPLAINS OF NERVE PAIN IN CHEST AREA FROM PREVIOUS SHINGLES FOR WHICH SHE TAKES LYRICA. PT HAS SPANGLER IN PLACE WITH CLEAR YELLOW URINE RETURNED. PT HAS FLUIDS AND ANTIBIOTICS INFUSING PER EMAR, SHE HAS EATEN MOST OF HER MEAL TRAYS AND IS TAKING ADEQUATE PO FLUIDS. PT PCR WAS NEGATIVE AND PT WILL BE MOVING TO TELE FLOOR. SHE IS NSR ON TELE, ORDER FOR SPANGLER REMOVAL WAS GIVEN AND SPANGLER WAS REMOVED WITHOUT PROBLEM. REPORT WAS CALLED TO RECEIVING NURSE, PT TRANSFERED TO ROOM 221 BY WHEELCHAIR.
[2020-09-04 16:24] VITALS: BP 103/47
--- NOTE | 2020-09-04 18:04 | NUR ---
PATIENT ARRIVED A TRANSFER FROM [facility] AT APPROX. 1645 (PCR NEGATIVE). PATIENT IS A&OX4, PLEASANT AND COOPERATIVE WITH CARES. PATIENT LIVES IN CARE HOME APARTMENTS. PATIENT HAS IV IN RIGHT AC WITH FLUIDS INFUSING ORDERED. PATIENT C/O CHRONIC PAIN IN RIGHT SHOULDER/CHEST AREA DUE TO PREVIOUS SHINGLES DIAGNOSIS. PATIENT HAD BM THIS A.M. CALL LIGHT AND FREQUENTLY USED ITEMS WITHIN REACH.
[2020-09-04 23:44] VITALS: BP 132/66
[2020-09-05 04:34] LABS: CALCIUM 7.8 mg/dL (8.5-10.1); CREATININE 0.7 mg/dL (0.6-1.3); MAGNESIUM 2.2 mg/dL (1.8-2.4); POTASSIUM 3.2 mmol/L (3.5-5.1)
--- NOTE | 2020-09-05 08:16 | NUR ---
PT IS ABLE TO COMMUNICATE HER NEEDS TO STAFF EFFECTIVELY. CURRENT PAIN MEDICATION REGIMEN HAS BEEN ADEQUATE FOR CONTROLLING HER PAIN UP TO 0700 THIS MORNING. PT VOIDING WITHOUT DIFFICULTY OF 0700 THIS MORNING. LEFT FOOT PAIN IS CONCERNING TO PT. NON-TELEMETRY STATUS OF 0700 TODAY.
[2020-09-05 09:11] VITALS: BP 140/59
[2020-09-05 16:32] VITALS: BP 126/51
--- NOTE | 2020-09-05 18:10 | NUR ---
PATIENT HAS REMAINED A&OX4 THIS SHIFT, PLEASANT AND COOPERATIVE WITH CARES. PATIENT C/O LEFT FOOT PAIN ALONG WITH RESIDUAL PAIN IN RIGHT CHEST AREA FROM PREVIOUS SHINGLE INFECTION. LIDOCAINE PATCH PLACED ON LEFT FOOT, WHICH PATIENT REPORTS DECREASES PAIN SIGNIFICANTLY. PATIENT UP TO BATHROOM WITH ASSISTX1 USING GAIT BELT AND WALKER. PATIENT REPORTS LESSENING LEFT FOOT PAIN WITH PT AND AMBULATION. PATIENT'S POTASSIUM LEVEL THIS A.M. WAS 3.2, ELECTROLYTE PROTOCOL ADDED AND ADMINISTERED, POTASSIUM RECHECK DUE AT 1900. PATIENT HAS REFUSED MECLIZINE THIS SHIFT, STATING "I DONT NEED IT". PATIENT VOIDING WITH NO ISSUES (SPANGLER REMOVED 09/04 P.M.) CALL LIGHT AND FREQUENTLY USED ITEMS WITHIN REACH.
[2020-09-05 20:30] VITALS: BP 148/70
[2020-09-06 04:00] VITALS: BP 132/78
[2020-09-06 07:30] VITALS: BP 141/68
[2020-09-06] MEDS ORDERED: CEFUROXIME250 MG PO (08:34)
--- NOTE | 2020-09-06 10:17 | NUR ---
CM SPOKE TO THE PT TO DISCUSS CM ASSESSMENT. PT A&O, AND NORMALLY INDEPENDENT WITH ADL'S. PT RESIDES AT HOME ALONE, BUT HAS DTR WHO IS ABLE TO ASSIST HER NEEDED. PT USES WALKER OR CANE AT HOME FOR MOBILITY. PT HAS HX OF HH WITH [facility]. PT HAS 0 HX OF SNF. PLAN FOR PT TO D/C HOME TODAY AND PT REQUEST HH WITH [facility]. CM WILL REMAIN AVAILABLE TO ASSIST AND FOLLOW NEEDED.
[2020-09-06 11:20] VITALS: BP 141/68
[2020-09-06 11:33] VITALS: BP 141/68
--- NOTE | 2020-09-06 13:56 | NUR ---
PATIENT UP WITH SBA AND WALKER TO BATHROOM AND AMBULATE IN ROOM WITHOUT DIFFICULTY. PATIENT GIVEN SCHED NORCO ORDERED. IV DC'D. PATIENT DC'D TO HOME WITH HOME HEALTH. VERBALIZED UNDERSTANDING OF PAPERWORK AND SCRIPT. PATIENT TAKEN OUT VIA WHEELCHAIR WITH DAUGHTER AND STAFF.
== END 2020-09-06 13:59 | disposition home health service (06) | DRG 871 ==
LOC: M.ERS 11:52 → M.TBA-ER 13:18 → M.2W 13:18 → M.ORTHSURG 19:48 → M.2W 09-04 16:45
PROVIDERS: Family Medicine; Internal Medicine; ADMIT Internal Medicine; ATTEND Internal Medicine
DX: A41.9 Sepsis, unspecified organism (principal); N17.0 Acute kidney failure with tubular necrosis; N39.0 Urinary tract infection, site not specified; I10 Essential (primary) hypertension; E03.9 Hypothyroidism, unspecified; G89.29 Other chronic pain; R53.81 Other malaise; B96.1 Klebsiella pneumoniae [K. pneumoniae] as the cause of diseases classified elsewhere; J45.909 Unspecified asthma, uncomplicated; K21.9 Gastro-esophageal reflux disease without esophagitis; E78.00 Pure hypercholesterolemia, unspecified; Z20.822 Contact with and (suspected) exposure to COVID-19; Z79.899 Other long term (current) drug therapy; Z87.891 Personal history of nicotine dependence

== ENCOUNTER → 2020-10-12 | Outpatient (CLI) | payer OTHER, MEDICAID ==
[~2020-10-12] MED LIST changes: +CEFUROXIME250 MG PO
== END ==
LOC: M.PC 11:00
PROVIDERS: ATTEND Anesthesiology Pain Medicine
DX: B02.9 Zoster without complications (principal); L71.9 Rosacea, unspecified; M17.0 Bilateral primary osteoarthritis of knee; E78.5 Hyperlipidemia, unspecified; L30.9 Dermatitis, unspecified; E03.9 Hypothyroidism, unspecified; M85.88 Other specified disorders of bone density and structure, other site; M81.0 Age-related osteoporosis without current pathological fracture; F41.9 Anxiety disorder, unspecified; G47.00 Insomnia, unspecified; K51.90 Ulcerative colitis, unspecified, without complications; K21.9 Gastro-esophageal reflux disease without esophagitis; E87.8 Other disorders of electrolyte and fluid balance, not elsewhere classified

== ENCOUNTER 2020-11-21 10:39 | Inpatient (IN) | payer OTHER, MEDICAID ==
[~2020-11-21] VITALS: Ht 147.3 cm; Wt 70.3 kg
[2020-11-21 10:44] VITALS: BP 158/62
[2020-11-21 11:12] LABS: URINE BILIRUBIN NEGATIVE (Negative); URINE BLOOD TRACE (Negative); URINE CLARITY CLEAR; URINE COLOR YELLOW; URINE GLUCOSE-RANDOM NEGATIVE (Negative); URINE KETONES NEGATIVE (Negative); URINE LEUKOCYTES NEGATIVE (Negative); URINE NITRITE NEGATIVE (Negative); URINE PROTEIN NEGATIVE (Negative); URINE SPECIFIC GRAVITY 1.025 (1.005-1.030); URINE UROBILINOGEN 0.2 E.U./dl (0.2-1.0)
[2020-11-21 12:04] LABS: HEMATOCRIT 37.9 % (37.0-47.0); HEMOGLOBIN 12.5 gm/dL (12.0-15.0); MCHC 33.1 g/dL (28.0-37.0); MCV 93.6 fL (80.0-100.0); NUCLEATED RBCS 0 /100WBC; PLATELET COUNT* 194 thou/uL (150-400); RBC 4.04 mil/uL (4.20-5.00); RDW-CV 14.9 % (10.5-14.5); WBC 15.8 thou/uL (4.0-11.0)
[2020-11-21 12:15] LABS: CALCIUM 8.8 mg/dL (8.5-10.1); CREATININE 0.7 mg/dL (0.6-1.3); POTASSIUM 3.9 mmol/L (3.5-5.1)
[2020-11-21 12:19] LABS: ALBUMIN 3.3 g/dL (3.4-5.0); TOTAL BILIRUBIN 0.5 mg/dL (<0.1-1.0); TOTAL PROTEIN 7.4 g/dL (6.4-8.2)
[2020-11-21 12:27] LABS: ABSOLUTE LYMPHOCYTES 0.6 thou/uL (0.8-5.3); ABSOLUTE MONOCYTES 1.1 thou/uL (0.0-1.2); ABSOLUTE NEUTROPHILS 14.1 thou/uL (1.6-8.1); ANISOCYTOSIS 1+; PLATELET ESTIMATE ADEQUATE; POIKILOCYTOSIS 1+
[2020-11-21 16:25] VITALS: BP 104/36
[2020-11-21 16:56] VITALS: BP 110/53
[2020-11-21 20:00] VITALS: BP 131/54
[2020-11-22] VITALS (7 sets, daily range): BP systolic 77–137; BP diastolic 41–58
[2020-11-22 05:41] LABS: ABSOLUTE BASOPHILS 0.1 thou/uL (0.0-0.2); ABSOLUTE EOSINOPHILS 0.1 thou/uL (0.0-0.7); ABSOLUTE LYMPHOCYTES 5.4 thou/uL (0.8-5.3); ABSOLUTE MONOCYTES 0.8 thou/uL (0.0-1.2); ABSOLUTE NEUTROPHILS 10.6 thou/uL (1.6-8.1); BASOPHILS 0.5 %; EOSINOPHILS 0.3 %; HEMATOCRIT 30.6 % (37.0-47.0); LYMPHOCYTES 31.6 %; MCH 31.5 pg (26.0-34.0); MCHC 33.4 g/dL (28.0-37.0); MCV 94.2 fL (80.0-100.0); MONOCYTES 4.8 %; MPV 8.8 fl. (7.2-11.1); NUCLEATED RBCS 0 /100WBC; PLATELET COUNT* 155 thou/uL (150-400); POLYS 62.8 %; RBC 3.25 mil/uL (4.20-5.00); RDW-CV 14.9 % (10.5-14.5); WBC 16.9 thou/uL (4.0-11.0)
[2020-11-22 05:45] LABS: HEMOGLOBIN 10.2 gm/dL (12.0-15.0)
[2020-11-22 06:04] LABS: CALCIUM 7.6 mg/dL (8.5-10.1); CREATININE 0.6 mg/dL (0.6-1.3); POTASSIUM 3.3 mmol/L (3.5-5.1)
[2020-11-22 10:43] LABS: MAGNESIUM 2.1 mg/dL (1.8-2.4); PHOSPHORUS* 3.5 mg/dL (2.5-4.9)
--- NOTE | 2020-11-22 11:15 | EKG ---
[place] [address] ELECTROCARDIOGRAM REPORT Name: MARVIN DARDEN Room: [address] ADM IN [facility].#: [id number] Admission: 11/21/20 Attend Phys: Kwadwo Gomez, Discharge: Date of : 34 Date of Service: 11/21/20 1418 Report #: [id number] THIS REPORT FOR: //name// [facility] ED Test Date: 2020-11-21 Test Time: 14:18:00 Pat Name: MARVIN DARDEN Department: Room: [facility] Gender: F Agricultural Produce Washer: CRISTIANE : 1930 Requested By: Catherine Dove Order Number: [id number] MD: Adan Vela Measurements Intervals [place] Rate: 95 P: 1 MN: 182 QRS: -41 QRSD: 104 T: 59 QT: 366 QTc: 460 Interpretive Statements Sinus arrhythmia left axis Left ventricular hypertrophy Compared to ECG 09/03/2020 12:05:57 Sinus tachycardia no longer present Right bundle-branch block no longer present Electronically Signed On 11-22-2020 11:14:51 CDT by Adan Vela [email or web address] <ELECTRONICALLY SIGNED> By: Adan Vela MD, FAC 11/22/20 1114 1418 1418 Adan Vela MD, FAC /EPI
[2020-11-23] VITALS: BP 123/51
[2020-11-23 04:00] VITALS: BP 149/66
[2020-11-23 05:15] LABS: CALCIUM 7.9 mg/dL (8.5-10.1); CREATININE 0.6 mg/dL (0.6-1.3); POTASSIUM 3.5 mmol/L (3.5-5.1)
[2020-11-23 05:19] LABS: HEMATOCRIT 30.8 % (37.0-47.0); HEMOGLOBIN 10.3 gm/dL (12.0-15.0); MCH 31.5 pg (26.0-34.0); MCHC 33.4 g/dL (28.0-37.0); MCV 94.4 fL (80.0-100.0); MPV 9.1 fl. (7.2-11.1); RBC 3.27 mil/uL (4.20-5.00); RDW-CV 14.8 % (10.5-14.5); WBC 9.7 thou/uL (4.0-11.0)
[2020-11-23 08:00] VITALS: BP 131/58
[2020-11-23 12:00] VITALS: BP 142/60
[2020-11-23 20:00] VITALS: BP 134/62
[2020-11-24] VITALS: BP 141/60
[2020-11-24 04:00] VITALS: BP 149/61
[2020-11-24 06:21] LABS: HEMATOCRIT 30.5 % (37.0-47.0); HEMOGLOBIN 10.1 gm/dL (12.0-15.0); MCH 31.5 pg (26.0-34.0); MCHC 33.3 g/dL (28.0-37.0); MCV 94.7 fL (80.0-100.0); MPV 9.1 fl. (7.2-11.1); RBC 3.22 mil/uL (4.20-5.00); WBC 9.5 thou/uL (4.0-11.0)
[2020-11-24 06:24] LABS: CALCIUM 8.6 mg/dL (8.5-10.1); CREATININE 0.6 mg/dL (0.6-1.3); POTASSIUM 3.2 mmol/L (3.5-5.1)
[2020-11-24 07:37] VITALS: BP 142/70
[2020-11-24] MEDS ORDERED: AZITHROMYCIN500 MG PO (09:34)
[2020-11-24] MEDS ORDERED: FLOMAX0.4 MG PO (09:35)
[2020-11-24 12:05] VITALS: BP 116/58
[2020-11-24 14:24] VITALS: BP 122/58
== END 2020-11-24 15:29 | disposition home health service (06) | DRG 871 ==
LOC: M.ERS 10:39 → M.TBA-ER 15:26 → M.2W 15:26
PROVIDERS: Emergency Medicine; Family Medicine; Nurse Practitioner Family; ADMIT Internal Medicine; ATTEND Internal Medicine
DX: A41.9 Sepsis, unspecified organism (principal); J15.6 Pneumonia due to other Gram-negative bacteria; J45.909 Unspecified asthma, uncomplicated; G89.29 Other chronic pain; M19.90 Unspecified osteoarthritis, unspecified site; E03.9 Hypothyroidism, unspecified; E87.6 Hypokalemia; E78.5 Hyperlipidemia, unspecified; K21.9 Gastro-esophageal reflux disease without esophagitis; R33.9 Retention of urine, unspecified; I10 Essential (primary) hypertension; Z20.822 Contact with and (suspected) exposure to COVID-19; Z96.653 Presence of artificial knee joint, bilateral; Z98.49 Cataract extraction status, unspecified eye; Z79.899 Other long term (current) drug therapy; Z87.891 Personal history of nicotine dependence

== ENCOUNTER → 2021-02-01 | Outpatient (CLI) | payer OTHER, MEDICAID ==
[~2021-02-01] MED LIST changes: +FLOMAX0.4 MG PO
== END ==
LOC: M.PC 11:00
PROVIDERS: ATTEND Anesthesiology Pain Medicine
DX: K51.90 Ulcerative colitis, unspecified, without complications (principal); G47.00 Insomnia, unspecified; F41.9 Anxiety disorder, unspecified; J18.9 Pneumonia, unspecified organism; E87.8 Other disorders of electrolyte and fluid balance, not elsewhere classified; M81.0 Age-related osteoporosis without current pathological fracture; I10 Essential (primary) hypertension; M85.88 Other specified disorders of bone density and structure, other site; E03.9 Hypothyroidism, unspecified; L30.9 Dermatitis, unspecified; E78.5 Hyperlipidemia, unspecified; M17.0 Bilateral primary osteoarthritis of knee; L71.9 Rosacea, unspecified; K21.9 Gastro-esophageal reflux disease without esophagitis; Z85.828 Personal history of other malignant neoplasm of skin; Z87.891 Personal history of nicotine dependence; Z72.89 Other problems related to lifestyle; Z79.891 Long term (current) use of opiate analgesic; Z79.899 Other long term (current) drug therapy

== ENCOUNTER → 2021-03-31 | Outpatient (CLI) | payer OTHER, MEDICAID | LOC: M.PC 03-29 11:30 | PROVIDERS: ATTEND Anesthesiology Pain Medicine | DX: G89.29 Other chronic pain (principal); M54.16 Radiculopathy, lumbar region; I10 Essential (primary) hypertension; Z79.891 Long term (current) use of opiate analgesic; F17.200 Nicotine dependence, unspecified, uncomplicated ==

== ENCOUNTER → 2021-06-23 | Outpatient (CLI) | payer OTHER, MEDICAID | LOC: M.PC 11:35 | PROVIDERS: ATTEND Anesthesiology Pain Medicine | DX: B02.8 Zoster with other complications (principal); J18.9 Pneumonia, unspecified organism; E87.8 Other disorders of electrolyte and fluid balance, not elsewhere classified; E03.9 Hypothyroidism, unspecified; E78.5 Hyperlipidemia, unspecified; K51.90 Ulcerative colitis, unspecified, without complications; G47.00 Insomnia, unspecified; M17.0 Bilateral primary osteoarthritis of knee; M81.0 Age-related osteoporosis without current pathological fracture; K21.9 Gastro-esophageal reflux disease without esophagitis; L71.9 Rosacea, unspecified; L30.9 Dermatitis, unspecified; F41.1 Generalized anxiety disorder; I10 Essential (primary) hypertension; Z96.653 Presence of artificial knee joint, bilateral; Y95 Nosocomial condition; Z79.899 Other long term (current) drug therapy ==

== ENCOUNTER → 2021-08-18 | Outpatient (CLI) | payer OTHER, MEDICAID ==
[~2021-08-18] MED LIST changes: +FLONASE 0.05%50 MCG NASAL
== END ==
LOC: M.PC 11:27
PROVIDERS: ATTEND Anesthesiology Pain Medicine
DX: I10 Essential (primary) hypertension (principal); K21.9 Gastro-esophageal reflux disease without esophagitis; B02.29 Other postherpetic nervous system involvement; J90 Pleural effusion, not elsewhere classified; K51.90 Ulcerative colitis, unspecified, without complications; G47.00 Insomnia, unspecified; M85.80 Other specified disorders of bone density and structure, unspecified site; E78.5 Hyperlipidemia, unspecified; L71.9 Rosacea, unspecified; Z79.899 Other long term (current) drug therapy